=== PATIENT | female | born 1975 | race Caucasian/White ===

== ENCOUNTER 2024-10-15 12:49 | Emergency (ER) | payer MEDICAID, SELFPAY ==
[2024-10-15 12:49] VITALS: BP 145/81; PULSE 88; RESP 20; TEMP 36.9; O2SAT 100
--- NOTE | 2024-10-15 13:12 | RAD_ITS ---
EXAM: XR CHEST, 2 VIEWS CLINICAL INDICATION: COUGH TECHNIQUE: Frontal and lateral views of the chest. COMPARISON: No relevant prior studies available. FINDINGS: LUNGS AND PLEURAL SPACES: Unremarkable. No consolidation or edema. No pneumothorax. No effusion. HEART: Unremarkable. Cardiac silhouette not enlarged. MEDIASTINUM: Central airways and mediastinal contour are unremarkable. BONES/JOINTS: Mild degenerative changes of the spine and acromioclavicular joints. No acute fracture. SOFT TISSUES: Prior cholecystectomy. RAD/Chest PA and Lateral IMPRESSION: No radiographic evidence of acute cardiopulmonary disease. Electronically Signed: Brian Miller MD at 13:44 EST ,
--- NOTE | 2024-10-15 13:29 | EX.ED.VIS.UR ---
HPI HPI - URI History of Present Illness Chief Complaint: Cough Detail of Chief Complaint: Cough and congestion Informant: patient Narrative Narrative: Patient presents to the emergency department with complaint of cough and congestion. She tells me she had COVID 2 weeks ago and continues to cough and feel congested. She has history of asthma. She denies any significant chest pain. She has had some clear to white phlegm at times. She denies recent travel or surgery. No prior history of PE or DVT. ROS ROS ED Review of Systems ROS Unobtainable: other Constitutional Constitutional ED: Reports lethargy; Denies chills, fever(s), sweats or weight loss Eyes Eyes: Denies blurry vision, change in vision or diplopia ENT ENT ED: Denies rhinorrhea or sore throat Cardiovascular Cardiovascular: Denies chest pain, orthopnea or racing heartbeat Respiratory/Chest Respiratory/Chest: Reports cough; Denies dyspnea, dyspnea on exertion, orthopnea or sputum Gastrointestinal Gastrointestinal: Denies abdominal pain, diarrhea, nausea or vomiting Genitourinary Genitourinary ED: Denies dysuria, hematuria or urinary frequency Musculoskeletal Musculoskeletal: Denies arthralgias, back pain, myalgias or neck pain Integumentary Denies abscess, Abrasions or rash Neurologic Neurologic: Denies headache(s) or weakness Psychiatric Psychiatric: Denies anxiety, depression or suicidal thoughts Endocrine Endocrinology: Denies polydipsia, polyphagia or polyuria Hematologic/Lymphatic Hematologic/Lymphatic: Denies easy bleeding, easy bruising or lymphadenopathy Allergic/Immunologic Allergic/Immunologic ED: Denies mouth swelling, tongue swelling or urticaria [facility] Medical History (Updated 10/15/24 @ 13:[address] Eitan Liang, ) Cough Physical exam, pre-employment Home Medications ?Medication ?Instructions ?Recorded ?Last Taken ?Type albuterol sulfate 90 mcg/actuation 2 puff inhalation Q4H PRN PRN 10/15/24 Unknown Rx aerosol inhaler (Ventolin HFA) Wheezing ##1 benzonatate 200 mg capsule 200 mg PO BID PRN cough #14 caps 10/15/24 Unknown Rx prednisone 20 mg tablet 20 mg PO BID #10 tabs 10/15/24 Unknown Rx Allergy/AdvReac Type Severity Reaction Status Date / Time metoclopramide (From Reglan) Allergy Severe NEEDS Verified 01/22/25 12:51 FOLLOW-UP lisinopril Allergy Intermediate COUGH Verified 10/15/24 12:51 Social History Smoking Status: Unknown if ever smoked EXAM Physical Exam Const Vital Signs: 10/15/24 12:49 10/15/24 13:07 Temperature 98.5 F Temperature Source Temporal Pulse Rate 88 Respiratory Rate 20 H Respiratory Effort Normal Non-Labored Respiratory Depth Normal Respiratory Pattern Normal Blood Pressure 145/81 H Blood Pressure Mean 102 Pulse Ox 100 Oxygen Delivery Method Room Air Positive well nourished and well developed General Appearance ED: well developed and NAD HEENT Reports TM's clear and moist mucous membranes normocephalic and atraumatic; Negative for trauma or tenderness Tympanic Membrane ED: Yes TM's clear Eyes PERRL and EOMs intact bilaterally General Eye ED: Negative for pale conjunctiva or scleral icterus Neck no lymphadenopathy, supple and no JVD General: Negative for tenderness Chest Wall inspection of chest normal and palpation of chest normal Chest: Negative for tenderness Resp normal respiratory effort and clear to auscultation bilaterally Effort and Inspection: Negative for respiratory distress or pain with movement Auscultation: Negative for rhonchi, wheezes or diminished lung sounds Cardio regular rate, regular rhythm, S1 normal heart sound, S2 normal heart sound and no murmurs Peripheral Pulses: pulses 2+ throughout GI normal to inspection, nondistended, normoactive bowel sounds, soft to palpation, non-tender, non-distended and no masses Back/Spine no CVA tenderness and no thoracic nor lumbar tenderness Extremity normal to inspection General Extremety ED: Negative for edema General Extremity: Negative for edema Neuro oriented x3, CN's II-XII intact bilaterally, no sensory deficits noted and gait normal Sensorium / Orientation: awake, alert, oriented to person, oriented to place and oriented to time Motor Exam: strength 5/5 throughout and strength abnormal Psych mental status grossly normal Skin no rashes or lesions noted and no wounds MDM MDM MDM Narrative Medical decision making narrative: Patient presents with ongoing cough and congestion for the last 2 weeks since being diagnosed with COVID. She denies fevers or chills. She has had some clear phlegm. Clinically she looks well. She does have history of asthma. Lab Data Attestation: I reviewed the patient's lab results. Radiography Diagnostic Testing: Clinical Impression(s) from Imaging Studies Chest X-Ray 10/15/24 13:12 IMPRESSION: No radiographic evidence of acute cardiopulmonary disease. Electronically Signed: Brian Miller MD at 13:44 EST , 2 view chest x-ray obtained interpreted by myself as no evidence of infiltrate or pneumothorax or acute disease process. Radiology in agreement. Discharge Plan Triage Chief Complaint: Cough ED Provider: Eitan Liang Dx/Rx/DC Orders Clinical Impression: Asthmatic bronchitis Instructions: ED Bronchitis, No Antibiotic (Adult) Prescriptions: New prednisone 20 mg tablet 20 mg PO BID Qty: 10 0RF benzonatate 200 mg capsule 200 mg PO BID PRN (Reason: cough) Qty: 14 0RF albuterol sulfate [Ventolin HFA] 90 mcg/actuation HFA aerosol inhaler 2 puff inhalation Q4H PRN PRN (Reason: Wheezing) Qty: 1 0RF Primary Care Provider: Care Physician,No Primary Referrals: Care Physician,No Primary [Primary Care Provider] - Print Language: Georgian Disposition Disposition: Home, Self Care
== END 2024-10-15 14:06 | disposition home or self-care (01) ==
LOC: ED 13:59
PROVIDERS: Emergency Provider Emergency Medicine; Referring Provider Emergency Medicine; Visit Provider Emergency Medicine
DX: J45.909 Unspecified asthma, uncomplicated (principal); Z86.16 Personal history of COVID-19
CPT/HCPCS: 71046; 99282

== ENCOUNTER 2024-11-10 19:24 | Emergency (ER) | payer MEDICAID, SELFPAY ==
[2024-11-10 19:25] VITALS: BP 129/81; PULSE 92; RESP 17; TEMP 37; O2SAT 100
--- NOTE | 2024-11-10 19:32 | RAD_ITS ---
PROCEDURE: Portable upright chest radiograph, one view REASON FOR EXAM: Chest pain TECHNIQUE: A single AP COMPARISON: View of the chest was obtained. None. FINDINGS: The cardiomediastinal silhouette is within normal limits. The osseous structures are intact. No pneumothorax, focal airspace consolidation, or pleural effusion. RAD/Chest 1 View (Portable) IMPRESSION: No acute cardiopulmonary process is demonstrated. If there is persistent pain or clinical concern, follow-up chest CT evaluation may be considered. Reading Location: [facility]
[2024-11-10 19:45] LABS: Absolute Lymphocyte Count 3.38 X10^3/uL (0.83-4.51); Absolute Neutrophil Count 6.6 X10^3/uL (2.0-7.7); Basophil# 0.08 X10^3/uL; Basophil% 0.7 % (0-1); Eosinophil# 0.11 X10^3/uL; Hematocrit 44.4 % (37-47); Hemoglobin 14.3 g/dL (12.0-15.0); Lymphocyte # 3.38 X10^3/ul (0.83-4.51); Lymphocyte % 30.9 % (19-41); Mean Corp Hgb Conc 32.2 g/dL (32-36); Mean Corpuscular Hgb 29.1 pg (27.0-32.0); Mean Corpuscular Volume 90.2 fL (81-99); Mean Platelet Vol. 9.3 fl (6.2-12.0); Monocyte# 0.72 X10^3/uL; Monocyte% 6.6 % (0-10); NRBC Flagged by Analyzer 0 % (0-5); Neutrophil # 6.62 X10^3/uL (2.7-7.7); Neutrophil % 60.6 % (47-70); Platelet Count 458 K/mm3 (150-450); RBC Distribution Width CV 12.9 % (11.6-14.6); RBC Distribution Width SD 42.5 fl (35.1-43.9); Red Blood Count 4.92 M/mm3 (4.2-5.4); White Blood Count 10.9 K/mm3 (4.4-11.0)
[2024-11-10 20:28] LABS: Anion Gap 6 (5-15); BUN 9 mg/dL (7-18); BUN/Creat Ratio 10.8 RATIO (10-20); Calcium,Total 9.4 mg/dL (8.5-10.1); Chloride 104 mmol/L (98-107); Creatinine, Serum 0.83 mg/dL (0.55-1.02); EST Glomerular Filtration Rate 78 mL/min (>60); Est Glom Filt Rate - Afr Amer 94 mL/min (>60); Glucose 99 mg/dL (74-106); Potassium 2.9 mmol/L (3.5-5.1); Sodium Level 137 mmol/L (136-145); Troponin-I HS (w/2H Reflex) 3 pg/mL (3.0-54.0)
[2024-11-10 21:36] LABS: Reflex Troponin-HS? (from REC) Y
[2024-11-10 22:06] VITALS: BP 116/67; PULSE 74
--- NOTE | 2024-11-10 22:27 | ED.VIS.CHEST ---
HPI History of Present Illness Chief Complaint: Chest Pain Narrative Narrative: Chief complaint and HPI: Chest pain. 49-year-old female with past medical history of fibromyalgia, anxiety, HTN presents for evaluation of midsternal chest pain. Onset of chest pain was yesterday. Patient states that she has been under a huge amount of stress since Sunday. She describes the pain as slight pressure. She denies any fever, chills, shortness of breath, abdominal pain, URI symptoms. Denies any trauma. Denies any bilateral lower extremity pain or swelling. Denies any recent travel or surgery. History of tobacco abuse. Denies any history of CAD or CAD at young family members. Review of systems: See HPI Medications: As listed on the chart Allergies: As listed on the chart PFSH: Per chart Vital signs: As listed on the chart. Reviewed. Physical exam: Gen: A&O x3, NAD Head: Normocephalic, atraumatic Eyes: No sclera icterus, conjunctiva clear ENT: Moist mucous membranes Neck: Trachea midline, No JVD CV: RRR, no murmurs, no peripheral edema Resp: Lungs CTA BL, no w/r/c GI: Abd soft, non-distended, non-tender, no r/r/g Musc: Full ROM, no deformity Skin: Warm, dry Neuro: Alert, oriented, grossly intact, sensation intact Psych: Cooperative, appropriate mood and affect [facility] Medical History (Updated 11/10/24 @ 23:[address] Jero Isaacs, ) Cough Physical exam, pre-employment Home Medications ?Medication ?Instructions ?Recorded ?Last Taken ?Type albuterol sulfate 90 mcg/actuation 2 puff inhalation Q4H PRN PRN 10/15/24 Unknown Rx aerosol inhaler (Ventolin HFA) Wheezing ##1 cyclobenzaprine 10 mg tablet 10 mg PO QHS PRN PRN muscle spasm 11/10/24 Unknown History duloxetine 60 mg capsule,delayed 60 mg PO DAILY 11/10/24 Unknown History release gabapentin 300 mg capsule 300 mg PO TID 11/10/24 Unknown History hydrochlorothiazide 12.5 mg capsule 12.5 mg PO DAILY 11/10/24 Unknown History losartan 100 mg tablet 100 mg PO DAILY 11/10/24 Unknown History potassium chloride 10 mEq 10 meq PO BID 11/10/24 Unknown History tablet,extended release topiramate 25 mg tablet 75 mg PO QHS 11/10/24 Unknown History Allergy/AdvReac Type Severity Reaction Status Date / Time metoclopramide (From Reglan) Allergy Severe NEEDS Verified 11/10/24 19:25 FOLLOW-UP lisinopril Allergy Intermediate COUGH Verified 11/10/24 19:25 Social History Smoking Status: Light Smoker (<10/day) EXAM Physical Exam Const Vital Signs: 11/10/24 19:25 11/10/24 22:06 11/10/24 22:06 Temperature 98.6 F Temperature Source Oral Pulse Rate 92 74 Respiratory Rate 17 Blood Pressure 129/81 H 116/67 Blood Pressure Mean 97 83 Pulse Ox 100 Oxygen Delivery Method Room Air Room Air MDM MDM MDM Narrative Medical decision making narrative: 49-year-old female with past medical history of fibromyalgia, anxiety, HTN presents for evaluation of midsternal chest pain. Pain has been ongoing for 2 days. Patient states she has been under a lot of stress and anxiety lately. Denies any associated symptoms. Chest pain protocol was initiated in triage. Workup was mostly completed by the time I saw the patient. Differential diagnosis includes but is not limited to stress response, musculoskeletal strain, electrolyte abnormality. Suspect less likely ACS. Agree with the workup that was ordered. EKG and chest x-ray reviewed see below. CBC without leukocytosis or anemia. Patient does have thrombocytosis of 458. I do not have previous labs to compare to compared to. BMP with hypokalemia of 2.9. Will get magnesium level. P.o. potassium ordered. Troponin unremarkable x2. Magnesium level unremarkable. At this point in time no clear etiology for patient's chest pain. Patient is low risk via the heart score. Suspect less likely ACS. May be secondary to anxiety. Patient was educated to follow-up with PCP. She confirmed understanding of the plan. Patient was educated to continue potassium replacement. Will give her lab order to get her potassium rechecked in 3 days. She confirmed understanding. Return precautions explained. EKG: Interpreted by me/EM physician: EKG shows normal sinus rhythm without any acute ischemic changes. Heart rate is 70. Diagnostic: Interpreted by me/EM physician: Chest x-ray without pneumonia, effusion, cardiomegaly, pneumothorax Impression: 1. Chest pain, unclear etiology 2. Anxiety 3. Hypokalemia with history of hypokalemia Lab Data Labs: Laboratory Results - last 24 hr 11/10/24 11/10/24 19:00 22:25 WBC 10.9 RBC 4.92 Hgb 14.3 Hct 44.4 MCV 90.2 MCH 29.1 MCHC 32.2 RDW Std Deviation 42.5 RDW Coeff of [place] 12.9 Plt Count 458 H MPV 9.3 Immature Gran % (Auto) 0.200 Neut % (Auto) 60.6 Lymph % (Auto) 30.9 [place] % (Auto) 6.6 Eos % (Auto) 1.0 Baso % (Auto) 0.7 Absolute Neuts (auto) 6.6 Absolute Lymphs (auto) 3.38 Nucleated RBC % 0 Sodium 137 Potassium 2.9 L Chloride 104 Carbon Dioxide 27.0 Anion Gap 6 BUN 9 Creatinine 0.83 Est GFR (MDRD) Af Amer 94 Est GFR (MDRD) Non-Af 78 BUN/Creatinine Ratio 10.8 Glucose 99 Calcium 9.4 Magnesium 2.2 Troponin I High Sens 3 < 3 L Radiography Diagnostic Testing: Clinical Impression(s) from Imaging Studies Chest X-Ray 11/10/24 19:32 IMPRESSION: No acute cardiopulmonary process is demonstrated. If there is persistent pain or clinical concern, follow-up chest CT evaluation may be considered. Reading [facility] Discharge Plan Triage Chief Complaint: Chest Pain ED Provider: Jero Isaacs Dx/Rx/DC Orders Clinical Impression: Chest pain in adult, Anxiety, Hypokalemia Instructions: ED Hypokalemia, Chest Pain O Prescriptions: No Action albuterol sulfate [Ventolin HFA] 90 mcg/actuation HFA aerosol inhaler 2 puff inhalation Q4H PRN PRN (Reason: Wheezing) Qty: 1 0RF cyclobenzaprine 10 mg tablet 10 mg PO QHS PRN PRN (Reason: muscle spasm) topiramate 25 mg tablet 75 mg PO QHS potassium chloride 10 mEq tablet extended release 10 meq PO BID hydrochlorothiazide 12.5 mg capsule 12.5 mg PO DAILY gabapentin 300 mg capsule 300 mg PO TID losartan 100 mg tablet 100 mg PO DAILY duloxetine 60 mg capsule,delayed release(DR/EC) 60 mg PO DAILY Other Ambulatory Orders: Basic Metabolic Profile (BMP) (Routine) Timeframe: 3 Days Facility: [facility] - Location: Laboratory [facility] ,Out of Referrals: Barry Richter MD [Med Staff - Active Staff] - 3-5 Days [facility] Doctor,Out of [Primary Care Provider] - Activity Restrictions/Additional Instructions: Follow-up with your primary care physician. If you do not have one see the one provided above. Continue to take your potassium replacement. Get your potassium level rechecked. Return back to the ED if symptoms change or worsen. Print Language: Belarusian Disposition Disposition: Home, Self Care
[2024-11-10] MEDS: Potassium Chloride Oral Soln 20 MEQ/15 ML UDC 40 MEQ PO (22:38)
[2024-11-10 22:57] LABS: Magnesium 2.2 mg/dL (1.6-2.6); Troponin-I HS < 3 pg/mL (3.0-54.0)
== END 2024-11-11 00:01 | disposition home or self-care (01) ==
PROVIDERS: Emergency Provider Surgery; Visit Provider Surgery
DX: R07.9 Chest pain, unspecified (principal); F41.9 Anxiety disorder, unspecified; E87.6 Hypokalemia; F17.200 Nicotine dependence, unspecified, uncomplicated; I10 Essential (primary) hypertension; Z79.51 Long term (current) use of inhaled steroids; Z79.899 Other long term (current) drug therapy
CPT/HCPCS: 71045; 80048; 83735; 84484; 85025; 93005; 99285; A4216

== ENCOUNTER 2024-11-13 13:42 | Emergency (ER) | payer MEDICAID, SELFPAY ==
[2024-11-13 13:43] VITALS: BP 154/96; PULSE 108; RESP 18; TEMP 36.4; O2SAT 100; BMI 32.4
[2024-11-13 14:43] VITALS: BP 122/82; PULSE 81; RESP 20; O2SAT 97
[2024-11-13 14:46] VITALS: O2SAT 96
--- NOTE | 2024-11-13 14:46 | EKG12_ITS ---
Test Reason : PALPS Blood Pressure : */* mmHG Vent. Rate : 78 BPM Atrial Rate : 78 BPM P-R Int : 146 ms QRS Dur : 86 ms QT Int : 400 ms P-R-T Axes : 67 65 54 degrees QTcB Int : 456 ms Normal sinus rhythm Normal ECG Confirmed by RODERICK NAGY ([id number]), movie editor MELITON BESS ([id number]) on 11/17/2024 7:11:22 AM Referred By: Osorio Chaparro Confirmed By: RODERICK NAGY
--- NOTE | 2024-11-13 14:49 | RAD_ITS ---
PROCEDURE: CHEST 1 VIEW (PORTABLE) REASON FOR EXAM: Chest pain TECHNIQUE: Frontal view of the chest. COMPARISON: None. FINDINGS: Lungs are clear of pneumonia and congestion. No pleural effusions, thickening, or pneumothorax. Heart and mediastinum are normal. Great vessels unremarkable. No hilar masses. Bones and soft tissues are unremarkable. Cardiac monitoring leads overlie the chest wall. RAD/Chest 1 View (Portable) IMPRESSION: No active cardiopulmonary disease. Reading Location: [facility]
--- NOTE | 2024-11-13 14:52 | ED.VIS.CHEST ---
HPI History of Present Illness Chief Complaint: Palpitations Detail of Chief Complaint: Palpitations for a year. History of hypokalemia. Informant: patient Onset/Context/Timing Onset: - (12+ months. Palpitations. No chest pain.) Activity at onset: gradual Timing: Intermittent Worsened By: Nothing Relieved By: Nothing Narrative Narrative: 49-year-old female history of hypertension, fibromyalgia. States she has had low potassium before. She was seen here on Sunday had low potassium at that time at 2.9. States she is having accelerated heart rate and palpitations which she has had for more than a year. She has been evaluated for it. She is currently losing weight she is gone from 250 to around 180. Prior Similar Symptoms: Yes Recent Illness/Hospitalization: No CVD Risk Factors: Positive for Hypertension PE Risk Factors: Negative for Recent Travel/Surgery, Recent Immobilization, Prior DVT or PE, Cancer or OCP + Smoking + >/=35 TAD Risk Factors: Negative for Marfan's Syndrome [facility] Medical History (Updated 11/13/24 @ 16:[address] Osorio Chaparro MD) HTN (hypertension) Cough Physical exam, pre-employment Home Medications ?Medication ?Instructions ?Recorded ?Last Taken ?Type albuterol sulfate 90 mcg/actuation 2 puff inhalation Q4H PRN PRN 10/15/24 Unknown Rx aerosol inhaler (Ventolin HFA) Wheezing ##1 cyclobenzaprine 10 mg tablet 10 mg PO QHS PRN PRN muscle spasm 11/10/24 Unknown History duloxetine 60 mg capsule,delayed 60 mg PO DAILY 11/10/24 Unknown History release gabapentin 300 mg capsule 300 mg PO TID 11/10/24 Unknown History hydrochlorothiazide 12.5 mg capsule 12.5 mg PO DAILY 11/10/24 Unknown History losartan 100 mg tablet 100 mg PO DAILY 11/10/24 Unknown History potassium chloride 10 mEq 10 meq PO BID 11/10/24 Unknown History tablet,extended release topiramate 25 mg tablet 75 mg PO QHS 11/10/24 Unknown History Allergy/AdvReac Type Severity Reaction Status Date / Time metoclopramide (From Reglan) Allergy Severe NEEDS Verified 11/10/24 19:25 FOLLOW-UP lisinopril Allergy Intermediate COUGH Verified 11/10/24 19:25 Social History (Updated 11/13/24 @ 15:07 by Lily Mason) household members: friend(s) current occupational status: employed Smoking Status: Light Smoker (<10/day) ROS ROS ED ROS Narrative Palpitations. Denies recent illness. Had COVID 1 month ago. Constitutional Constitutional ED: Denies chills or fever(s) Eyes Eyes: Reports none ENT ENT ED: Denies ear pain Cardiovascular Cardiovascular: Reports as per HPI, palpitations and racing heartbeat; Denies chest pain Respiratory/Chest Respiratory/Chest: Denies cough or dyspnea Gastrointestinal Gastrointestinal: Denies abdominal pain Genitourinary Genitourinary ED: Denies dysuria or hematuria Musculoskeletal Musculoskeletal: Denies arthralgias or back pain Integumentary Denies abscess or Abrasions Neurologic Neurologic: Denies headache(s) Psychiatric Psychiatric: Denies anxiety Endocrine Endocrinology: Denies cold intolerance Hematologic/Lymphatic Hematologic/Lymphatic: Denies easy bleeding, easy bruising or lymphadenopathy Allergic/Immunologic Allergic/Immunologic ED: Denies mouth swelling, tongue swelling or urticaria EXAM Physical Exam Narrative Exam Narrative: 49-year-old female sitting upright in bed. Vital signs are stable afebrile. Heart rates 108. Pulse ox 100% on room air no signs hypoxia. No distress. H EENT exam pupils round react light. Neck nontender JVD. No lymphadenopathy. Lungs clear to auscultation bilaterally. Heart tachycardic 110 no murmur. Chest wall ribs nontender. Abdomen soft nontender. Moving all 4 extremities. Nontender no edema. No cords. Calves nontender. Normal strength. Normal range of motion. Back nontender. Neurologically awake and alert no focal motor deficits. Const Vital Signs: 11/13/24 13:43 11/13/24 14:43 11/13/24 14:46 Temperature 97.6 F L Temperature Source Temporal Pulse Rate 108 H 81 Respiratory Rate 18 20 H Respiratory Effort Blood Pressure 154/96 H 122/82 H Blood Pressure Mean 115 95 Pulse Ox 100 97 96 Oxygen Delivery Method Room Air Room Air 11/13/24 15:06 Temperature Temperature Source Pulse Rate Respiratory Rate Respiratory Effort Normal Non-Labored Blood Pressure Blood Pressure Mean Pulse Ox Oxygen Delivery Method Positive well nourished and well developed; Negative for cachectic, contractures or unkempt General Appearance ED: well developed and NAD; Negative for unkempt, cachectic, contractures or pallor Nutritional Appearance: Negative for cachectic HEENT Reports moist mucous membranes normocephalic and atraumatic; Negative for trauma or tenderness Eyes PERRL and EOMs intact bilaterally General Eye ED: Negative for pale conjunctiva or scleral icterus Neck no lymphadenopathy, supple and no JVD General: Negative for tenderness Chest Wall inspection of chest normal and palpation of chest normal Chest: Negative for tenderness Resp normal respiratory effort and clear to auscultation bilaterally Effort and Inspection: Negative for respiratory distress Auscultation: Negative for rales, rhonchi, wheezes or diminished lung sounds Cardio regular rate, regular rhythm, S1 normal heart sound, S2 normal heart sound and no murmurs Rate: Negative for bradycardia or tachycardic Rhythm: Negative for abnormal rhythm Peripheral Pulses: pulses 2+ throughout GI normal to inspection, nondistended, normoactive bowel sounds, soft to palpation, non-tender, non-distended and no masses Back/Spine no CVA tenderness and no thoracic nor lumbar tenderness Extremity normal to inspection General Extremety ED: Negative for edema, pulses abnormal or tenderness General Extremity: Negative for edema or pulses abnormal Neuro oriented x3 and CN's II-XII intact bilaterally Sensorium / Orientation: awake, alert, oriented to person, oriented to place and oriented to time; Negative for confused, lethargic or stuporous Motor Exam: strength 5/5 throughout Psych mental status grossly normal Appearance: Negative for unkempt Attitude: No agitated Mood & Affect: Negative for depressed, anxious or tearful Skin no rashes or lesions noted and no wounds General Skin Exam: Negative for jaundice or pallor Rashes: No rashes noted Trauma: Negative for abrasion MDM MDM MDM Narrative Medical decision making narrative: 49-year-old female palpitations. Exam benign. Screening labs will be obtained. Repeat exam at 4:20 PM patient doing well. Vital signs are stable. We discussed all of her test results. Her potassium is 3.4 she is on potassium replacement. She will continue that and follow-up with her primary care physician as needed. History & Record Review Discussion w/independent historian: Patient Additional record(s) reviewed:: Prior inpatient record, Prior outpatient record, Prior ED visit and Prior labs Lab Data Attestation: I reviewed the patient's lab results. Lab results narrative: CBC and white count normal at 7. H&H 13 and 40. Platelets 420. Electrolytes show potassium 3.4 which is much better than her recent 2.9. Anion gap 6. BUN and creatinine 19 and 0.8. Glucose 102. Troponin 4. Chest x-ray normal. Labs: Laboratory Results - last 24 hr 11/13/24 14:55 WBC 7.9 RBC 4.48 Hgb 13.0 Hct 40.4 MCV 90.2 MCH 29.0 MCHC 32.2 RDW Std Deviation 42.8 RDW Coeff of [place] 13.0 Plt Count 420 MPV 8.8 Immature Gran % (Auto) 0.300 Neut % (Auto) 57.1 Lymph % (Auto) 30.4 Emmet % (Auto) 7.6 Eos % (Auto) 3.7 Baso % (Auto) 0.9 Absolute Neuts (auto) 4.5 Absolute Lymphs (auto) 2.39 Nucleated RBC % 0 Sodium 140 Potassium 3.4 L Chloride 109 H Carbon Dioxide 25.0 Anion Gap 6 BUN 19 H Creatinine 0.88 Estim Creat Clear Calc 78.93 Est GFR (MDRD) Af Amer 88 Est GFR (MDRD) Non-Af 73 BUN/Creatinine Ratio 21.5 H Glucose 102 Calcium 9.3 Troponin I High Sens 4 Radiography Chest X-Ray - ED: 1 View, Read by ED Physician, Read by Radiologist, Heart, Lungs, Mediastinum, Bony Structures, No Acute Disease and Chronic Changes Diagnostic Testing: Clinical Impression(s) from Imaging Studies Chest X-Ray 11/13/24 14:49 IMPRESSION: No active cardiopulmonary disease. Reading Location: [facility] Chest x-ray, 2 views, AP and lateral, interpreted by myself and radiologist shows no acute abnormality. Normal cardiac silhouette. Normal lung croft. Rhythm Strip Rhythm Strip: Sinus Rhythm Rate: 78 Ectopy: None EKG Initial EKG: Attestation: I personally reviewed and interpreted this EKG as follows: Interpretation: Sinus Rhythm and No Acute Injury Pattern Comments: Normal sinus rhythm rate of 78 acute signs of VT or ischemia. No dysrhythmia. Discharge Plan Triage Chief Complaint: Palpitations ED Provider: Osorio Chaparro Dx/Rx/DC Orders Clinical Impression: Chronic hypokalemia, Heart palpitations Instructions: ED Hypokalemia Prescriptions: No Action albuterol sulfate [Ventolin HFA] 90 mcg/actuation HFA aerosol inhaler 2 puff inhalation Q4H PRN PRN (Reason: Wheezing) Qty: 1 0RF cyclobenzaprine 10 mg tablet 10 mg PO QHS PRN PRN (Reason: muscle spasm) topiramate 25 mg tablet 75 mg PO QHS potassium chloride 10 mEq tablet extended release 10 meq PO BID hydrochlorothiazide 12.5 mg capsule 12.5 mg PO DAILY gabapentin 300 mg capsule 300 mg PO TID losartan 100 mg tablet 100 mg PO DAILY duloxetine 60 mg capsule,delayed release(DR/EC) 60 mg PO DAILY Primary Care Provider: Lena Bazan,Out of Referrals: [facility] Doctor,Out of [Primary Care Provider] - As Needed Activity Restrictions/Additional Instructions: Your labs, chest x-ray and EKG all look good. Your potassium was just below normal at 3.4 much better than your prior 2.9. Continue to take your potassium as prescribed. Follow-up with your primary care physician as needed. Print Language: Prydeinig Disposition Disposition: Home, Self Care
[2024-11-13 15:00] LABS: Absolute Lymphocyte Count 2.39 X10^3/uL (0.83-4.51); Absolute Neutrophil Count 4.5 X10^3/uL (2.0-7.7); Basophil# 0.07 X10^3/uL; Basophil% 0.9 % (0-1); Eosinophil# 0.29 X10^3/uL; Eosinophils% 3.7 % (0-5); Hematocrit 40.4 % (37-47); Lymphocyte # 2.39 X10^3/ul (0.83-4.51); Lymphocyte % 30.4 % (19-41); Mean Corp Hgb Conc 32.2 g/dL (32-36); Mean Corpuscular Volume 90.2 fL (81-99); Mean Platelet Vol. 8.8 fl (6.2-12.0); Monocyte% 7.6 % (0-10); NRBC Flagged by Analyzer 0 % (0-5); Neutrophil # 4.48 X10^3/uL (2.7-7.7); Neutrophil % 57.1 % (47-70); Platelet Count 420 K/mm3 (150-450); RBC Distribution Width SD 42.8 fl (35.1-43.9); Red Blood Count 4.48 M/mm3 (4.2-5.4); White Blood Count 7.9 K/mm3 (4.4-11.0)
[2024-11-13 15:21] LABS: Anion Gap 6 (5-15); BUN 19 mg/dL (7-18); BUN/Creat Ratio 21.5 RATIO (10-20); Calcium,Total 9.3 mg/dL (8.5-10.1); Chloride 109 mmol/L (98-107); Creatinine, Serum 0.88 mg/dL (0.55-1.02); EST Glomerular Filtration Rate 73 mL/min (>60); Est Glom Filt Rate - Afr Amer 88 mL/min (>60); Estimated Creatinine Clearance 78.93 ml/min; Glucose 102 mg/dL (74-106); Potassium 3.4 mmol/L (3.5-5.1); Sodium Level 140 mmol/L (136-145); Troponin-I HS 4 pg/mL (3.0-54.0)
[2024-11-13 16:31] VITALS: BP 132/82; PULSE 79; RESP 15; TEMP 37; O2SAT 98
== END 2024-11-13 16:33 | disposition home or self-care (01) ==
PROVIDERS: Emergency Provider Emergency Medicine; Referring Provider Emergency Medicine; Visit Provider Emergency Medicine
DX: E87.6 Hypokalemia (principal); R00.2 Palpitations; F17.200 Nicotine dependence, unspecified, uncomplicated
CPT/HCPCS: 71045; 80048; 84484; 85025; 93005; 99284

== ENCOUNTER 2025-04-08 09:42 | Outpatient (RCR) | payer MEDICAID, SELFPAY ==
--- NOTE | 2025-04-08 10:44 | BH.COMM ---
Communication Note Communication with Client Communication Note: Met with pt to complete initial paperwork and administer the CSSR-S screening and risk assessment. Pt is a moderate risk based on symptoms from the past month. Pt denies any active SI, plan, or intent within the past month or thoughts of within the past month. However, pt does have history of wishing she could fall asleep and not wake up a little over a month ago. Pt also has history of suicidal ideations that pt reports are fleeting and intrusive in nature, not because she wants to . Per pt?s report it is difficult to say if all her past suicidal ideations were intrusive/obsessional in nature. Pt shared she had thoughts of shooting herself and overdosing when she has been depressed and overwhelmed in the past. Pt stated these thoughts cause significant panic and pt does not want to kill herself, so when she has these thoughts, she immediately tells someone. Pt has history of two suicide attempts back in the early . Pt feels that both attempts were due to her OCD symptoms, but pt was also under significant distress and had hopelessness. Pt first attempted after she read that she could get suicidal ideations from her Zoloft and then she attempted by taking too many Zoloft. Pt immediately vomited these up. Pt also attempted using Tylenol PM in the early and threw these up. Both attempts were right after she turned over her custody of her children. No weapons at home per her report. Pt reports she does not want to and she is terrified of , but she wants to be rid of these intrusive thoughts and racing thoughts. Pt is future oriented. Discussed case with Dr. Thurman and pt will be admitted to [facility] tx with a diagnosis of OCD F42
--- NOTE | 2025-04-08 10:44 | BH.MTP ---
Master Treatment Plan Patient Information Program Physician:: Dr. Paul Thurman Primary Therapist:: Bailey DE ANDA Psychiatric Diagnoses Psychiatric Diagnoses:: OCD F42; PTSD Diagnosis Code(s):: F42 Estimated LOS Estimated LOS (in weeks):: 8 Problem/Goal #1 Problem/Goal #1 Stated Goal:: Pt will reduce overall frequency and intensity of anxiety and OCD symptoms so that daily functioning is less impaired. Description of Barriers: Pt has a significant trauma history that continues to impact pt's core beliefs and behaviors. Pt is experiencing work, familial, and social stressors due to her symptoms. Pt is unable to manage her intrusive thoughts and feels like they are racing constantly. Pt reported she went my whole life without the right diagnosis. Pt has obsessional fears about medication, so there is a concern that pt will struggle to take a medication consistently to help with her OCD and anxiety. Functional Impact: Pt is a 49-year-old female with a history of C-PTSD, OCD, and MDD. Pt was referred to [facility] by [facility] due to pt experiencing significant anxiety and depression. Pt reports her OCD has been life-long, but it has become debilitating over the past 8 months. Psychosocial stressors impacting this decompensation include leaving one toxic environment for another, having surgery on her hang which hindered pt's ability to engage in compulsions, and work stress. Pt currently endorses a depressed mood with panic attacks multiple times a day. Pt reports obsessions about contamination, getting ill/having an illness, harm OCD, and order. Pt reports her compulsions take all day and they cause significant distress. Pt reports engaging in her compulsions is impacting her relationship with her and has caused issues with healing from surgery. Pt reports she is terrified to , but she is feeling extremely overwhelmed and helpless. Pt reports racing thoughts, irritability, and avoidance that impacts her daily functioning. Goal Relevant Strengths/Supports: Pt's symptoms have gotten so severe that pt shared I'm going to beat this, I can't keep doing this. Pt has support from her and a close family friend. Pt is engaged and motivated. Objectives Objective #1: Stated Objective: Pt will improve ability to cope with OCD symptoms and reduce avoidance by setting 1-2 small exposure goals each week and reducing engagement in compulsions each week. Interventions: Through group and individual therapy, pt will gain skills on distress tolerance and sitting with the uncomfortable. Therapist will help pt set small, realistic exposure goals each week. Therapist will have pt practice these goals both in session and at home. Therapist will provide psychoeducation on OCD including external triggers, internal triggers, rituals, avoidance, and feared consequences. Therapist will also provide psychoeducation on intrusive thinking and reducing safety behaviors. Therapist will assessment pt using the YBOCS assessment to develop ERP goals. Discharge Criteria: Pt will have accomplished this goal when pt can report accomplishing at least 1 exposure goal per week and can report reduced compulsions both at IOP and at home. Target Date: 06/03/25 Review Date: 05/06/25 Status: open Objective #2: Stated Objective: Pt will identify 2-3 anxiety and OCD triggers and be able to use at least 1 distress tolerance skill to reduce DSM-5 scores. Interventions: Through group and individual sessions, pt will gain awareness of anxiety and OCD triggers and learn numerous techniques to manage anxiety and OCD symptoms. Therapist will teach mindfulness and other calming techniques to manage symptoms and increase distress tolerance skills. Therapist will also help pt utilize mindfulness skills to sit with the uncomfortable to increase confidence in managing triggers. Discharge Criteria: Pt will have met this goal when pt can identify at least 2 triggers and report using at least one distress tolerance skill. This goal will also be met when pt's DSM-5 scores for anxiety and OCD are decreased. Target Date: 06/03/25 Review Date: 05/06/25 Status: open Problem/Goal #2 Problem/Goal #2 Stated Goal:: Pt will decrease depressive symptoms, hopelessness, excessive guilt, worthlessness, and negative self-talk. Description of Barriers: Pt has a significant trauma history that continues to impact pt's core beliefs and behaviors. Pt is experiencing work, familial, and social stressors due to her symptoms. Pt is unable to manage her intrusive thoughts and feels like they are racing constantly. Pt reported she went my whole life without the right diagnosis. Pt has obsessional fears about medication, so there is a concern that pt will struggle to take a medication consistently to help with her OCD and anxiety. Functional Impact: Pt is a 49-year-old female with a history of C-PTSD, OCD, and MDD. Pt was referred to [facility] by [facility] due to pt experiencing significant anxiety and depression. Pt reports her OCD has been life-long, but it has become debilitating over the past 8 months. Psychosocial stressors impacting this decompensation include leaving one toxic environment for another, having surgery on her hang which hindered pt's ability to engage in compulsions, and work stress. Pt currently endorses a depressed mood with panic attacks multiple times a day. Pt reports obsessions about contamination, getting ill/having an illness, harm OCD, and order. Pt reports her compulsions take all day and they cause significant distress. Pt reports engaging in her compulsions is impacting her relationship with her and has caused issues with healing from surgery. Pt reports she is terrified to , but she is feeling extremely overwhelmed and helpless. Pt reports racing thoughts, irritability, and avoidance that impacts her daily functioning. Goal Relevant Strengths/Supports: Pt's symptoms have gotten so severe that pt shared I'm going to beat this, I can't keep doing this. Pt has support from her and a close family friend. Pt is engaged and motivated. Objectives Objective #1: Stated Objective: Pt will learn and utilize 2-3 healthy coping strategies to better manage depressive symptoms as shown by a decrease of DMS-5 symptoms for depression. Interventions: Through group and individual sessions, therapist will help pt identify triggers and warning signs of depression and guilt including emotional, physical, and behavioral changes. Therapist will teach pt various coping skills to manage symptoms and give pt tangible resources to use to regulate emotions. Therapist will use cognitive restructuring techniques and help pt gain awareness of negative thoughts that reinforce guilt and depression. Therapist will provide psychoeducation on maintenance cycles and help pt learn ways to break unhealthy maintenance cycles. Therapist will help pt incorporate behavioral activation and assist pt in setting SMART goals. Discharge Criteria: Pt will have met this goal when can report learning and using at least 2 coping skills to manage depressive symptoms and reduce isolation. Additionally, pt will have met this goal when pt's DSM-5 scores for depression decrease. Target Date: 06/03/25 Review Date: 05/06/25 Status: open Objective #2: Stated Objective: Pt will identify at least 2-3 negative self-talk messages used to reinforce negative core beliefs, worthlessness, and guilt and replace thoughts with balanced, realistic messages. Interventions: Therapist will help pt identify distorted, negative beliefs about self and replace with more realistic, affirmative messages. Therapist will use CBT and DBT to help pt increase insight to the connection between thoughts, emotions, and behaviors. Therapist will encourage pt to practice thought challenging. Discharge Criteria: Pt will have achieved this goal when can verbalize at least 2 cognitive distortions and effectively replace those thoughts with affirmative messages. Target Date: 06/03/25 Review Date: 05/06/25 Status: open
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
--- NOTE | 2025-04-10 07:55 | BH.DR.ITP ---
Initial Treatment Plan Patient Information Visit Information: Initial Treatment Plan Patient Information Visit Information: ADMISSION DATE: EXPECTED LOS: 4-6 weeks Problems/Symptoms Problem #1:: Depression Symptom:: Sadness, hopelessness, worthlessness, anhedonia, low energy Problem #2:: Obsessions Symptom:: Ruminations, Compulsions, intrusive thoughts, near delusional thought
--- NOTE | 2025-04-10 09:00 | BH.NA_ITS ---
Physical Data Vital Signs Pulse Rate: 78 Blood Pressure: 179/94 Height/Weight Height: 1.6 m Weight:: 84.368 kg Weight in Pounds: 186.0 lbs Current Medication Compliance Medication Compliance Do you take your medication as prescribed?: No (stopped several medications 1.5 months ago) Nutritional History Appetite Nutritional Instructions: Describe your appetite:: Fair Additional nutritional information:: Client states she has a hard time eating or drinking due to fear that stuff is contaminated. Client states she can not drink water because it is contaminated. Functional Assessment Sleep Pattern Describe any problems with sleeping: Client states she sleeps about 4 hours per night. Sensory/Communication Assess Hearing Problems Do you have any hearing problems?: Adequate (does use hearing aids) Communication Problems Do you have difficulty understanding what people are saying?: No Medical Problems/History Cardiac Conditions Cardiovascular: Hypertension Gastrointestinal Conditions Gastrointestinal: Diarrhea (for the past month- states I won't go and see anyone about it because I have just given up on doctors) Musculoskeletal Conditions Musculoskeletal: Other (See comments) (states she has been diagnosed with fibromyalgia in the past) Pain Assessment Do you have acute or chronic pain?: Yes (back, knee, left hand ) Surgical History Surgical History Have you had any surgeries? If so, list type and date:: Yes (carpal tunnel left wrist in February 2025, tubal, 2 C-sections, marian, ear tube) Substance Abuse Substance Abuse Please describe substance abuse in the last 30 days:: Client states she rarely drinks alcohol, stating she has several alcoholics in her family and doesn't want to. Client has been a tobacco user since the age of 14, prior use of cigarettes for many years but now vapes. Client states she vapes marijuana daily to help with her anxiety, but states she only uses when she's at home. Client states she drinks some pop with caffeine, but limits her use due to sugar. Mental Status Summary Mental Status Significant Findings/Observations on Appearance and Mood:: Client is alert and oriented x 4. Client is casually groomed. Client is cooperative with assessment. Client makes fair eye contact. Client's voice has normal rate and volume. Client appears anxious, visibly shaking during assessment. Client has a restricted affect. Client has normal processing. Client denies SI. Suicide Assessment Suicidal Ideation Are you currently or have you been suicidal in the past?: Yes Suicidal Intentional Rating Scale (SIRS): Suicidal thoughts (past) Physician Notification Past Psychiatric History MH Treatment Hx Past Psychiatric Medications:: Zoloft (attempted to overdose on in the past, states I read the side effects and I convinced myself it made me suicidal), Seroquel (caused restless leg in left leg), Cymbalta (had been on for several years but states I stopped taking it 1.5 months ago because I convinced myself I didn't need it), Wellbutrin Age of first mental health symptoms: Client states she first tried medication for her mental health in her early 20's. Client states she has been diagnosed with depression in the past, and states she was once diagnosed with bipolar but states I don't have that. Client states she has not formally been diagnosed with OCD. Current providers for mental health treatment (counselor, psychiatrist, child welfare caseworker, etc.): Client does not currently have any - client states she last did therapy about 5 years ago Fall Risk Assessment Age Age: Less than 60 Mental Status Mental Status: Willing & able to ask for assistance when needed Physical Status Physical Status: No problems Impairments Impairments: None Elimination Elimination: Continent AND independent Gait or Balance Gait or Balance: Walks independently Hx of Falls History of falls in the past 6 months: No known history Medications/Substances Others:: Antihypertensives Medications/substances used within the past 24 hours or ordered to administer: 1-2 of the medications/substances listed above Total Score Total Points:: 1 RN Summary of Impressions Impressions Recommendations Impressions: Psychiatric Issues: OCD Impression: General Medical Conditions: Client's BP is 179/94 HR 78 - Client states I am having a panic attack right now, this is my 5th one of the day. Client is on Losartan for BP but takes at HS. Level of Care How do the client's current symptoms and functional deficits support need for this level of care?: Client was referred to IOP by [facility] ER for OCD symptoms and depression. Client reports racing thoughts, obsessions and compulsions around contamination and illness, and panic attacks. Client states she has been having several panic attacks per day everyday for the last year or so. Client had carpal tunnel surgery on her left wrist in February, and states her mental health has spiraled more since then as due to the recovery for this surgery is she unable to do her routines related to cleanliness. Client states she finds it hard to eat food or drink water due to fear of contamination. Client is tearful and reports I feel like the bad parts of my life just play on a constant loop in my mind. Client reports thoughts of suicide in the past, but denies current SI. Client states she fears getting an illness that will kill her, and states she does not want to . Client states she stopped taking much of her medication 1.5 months ago because she was convinced she didn't need it and that it wasn't helping her. Client reports she reads the side effects of medications and states it's easy to convince myself I have the side effects. IOP will promote gains and prevent further decompensation while providing social support and skills training.
[2025-04-10 10:05] VITALS: BP 179/94; PULSE 78
--- NOTE | 2025-04-10 10:15 | BH.SGPN.GN ---
Behaviors/Verbalizations/Mental Status: []Pt alert and oriented, neatly dressed and groomed. Eye contact good. Motor activity restless. Speech within normal limits. Affect congruent, mood anxious and depressed. Thoughts linear, logical, no signs of hallucinations or delusions. Client Response/Progress/Benefit: [] Pt participated during small group discussions. Attentive during psychoeducation about defense mechanisms. Showed engagement during small group discussions and helped group identify which defense mechanisms were maladaptive, adaptive, or ?somewhere in the akhtar.? Pt worked with small group on identifying how each defense mechanism can impact mental health and gave examples. Pt stated she has gained awareness that ?I do all of these things and I finally have a name for them.? Pt reported benefits from identifying examples of different defense mechanisms and normalizing why they are used. Seemed to benefit from gaining awareness about the different defense mechanisms. Pt to continue IOP tx to prevent decompensation, improve daily functioning, and increase strategies to improve ability to manage OCD. Narrative Note: []
--- NOTE | 2025-04-10 14:57 | BH.MDN_ITS ---
Multi-Disciplinary Note Note 45-min Individual: Time Started:: 11:32 Date: 04/10/25 Purpose of session/treatment goals addressed:: To provide emotional support, instill hope, and discuss plan of care. Eye Contact:: Good and Fair Motor Activity:: Appropriate Appearance:: Casual Speech:: Tangential Mood:: Anxious and Dysthymic Affect:: Flat (tearful) Thoughts:: Racing and Circular Staff Interventions:: CBT techniques, strengths perspective, taught coping skills (worked on self-compassion and dialectical thinking techniques.) and other (discussed coming up with a name for pt's OCD as part of her ERP therapy.) Client Response:: Pt responded well to session, open to meeting with therapist. Pt shared she is feeling overwhelmed today and sad. Pt stated coming to IOP is both scary and gives her hope. Pt also is currently dealing with trying to set boundaries with her older sister. Pt shared I had to kick her off my phone plan, I can't keep doing it. Pt stated her sister will not take this boundary well and pt is now having intrusive thoughts that if pt does this something bad will happen to her sister. Therapist offered emotional support and reinforced pt's reasons for setting the boundary. Pt recognizes she needs to take care of herself to overcome OCD. Pt also noted that her sister is actively using and it is not helpful for Pt's mental health to continue enabling her. Pt responded well to self compassion and dialectical thinking. Pt receptive to working on naming her OCD for homework and pt also receptive to finishing the Y- BOCS assessment next week. Risks/Concerns:: Pt denies any suicidal ideations, plan, or intent. Pt denies any thoughts of . Progress Toward Goals/Plan:: Progress noted in pt's willingness to engage in tx, but symptoms are unchanged. Pt reports Dr. Thurman prescribed a medication and pt plans to take this. Pt is anxious, but willing. Pt reports she is both hopeful and anxious about IOP's effectiveness. Pt and therapist plan to meet twice a week for the next few weeks to begin ERP. Pt and therapist will meet again next week and pt is to continue IOP to prevent decompensation, and improve daily functioning. Time Stopped:: 12:10
--- NOTE | 2025-04-13 09:05 | BH.SGPN.GN ---
Behaviors/Verbalizations/Mental Status: [] Eye contact is good. Motor activity is appropriate. Appearance is casual. Speech is Appropriate. Mood is anxious amd depressed. Affect is congruent. Thoughts are linear and logical. No evidence of psychosis. Reviewed daily check in sheet and no reports of suicidal ideations or intent. Client Response/Progress/Benefit: [] Pt was an active participant in group discussions. Attentive. Daily symptom tracker notes 4/5 for anxiety, depression, and irritability. Able to identify making several changes this week which have improve mental health. She reached out to family and communicated her recent mental health struggles. Family was receptive and empathetic. She also used skills to ? push through? her anxiety and complete a task. Increase confidence. Progress noted. Benefited from group support, encouragement, and feedback. Will continue in IOP to prevent decompensation, decrease intrusive thoughts, increase healthy coping, and improve functioning Narrative Note: []
--- NOTE | 2025-04-13 10:10 | BH.SGPN.GN ---
Behaviors/Verbalizations/Mental Status: [] Client alert and oriented, casually dressed and groomed. Eye contact good. Motor activity appropriate. Speech within normal limits. Affect congruent, mood anxious. Thoughts linear, logical, no signs of hallucinations or delusions. Client Response/Progress/Benefit: [] Pt was an attentive and active participant, AEB taking notes and providing input in group discussion. Attentive during psychoeducation. Pt engaged during interactive discussion in which the group defined self-care and discussed its benefits. Group discussed barriers and benefits to self-care. Identified benefits as being more productive, feeling more grounded, feeling happier, decreased anxiety, better quality of life, and increased resilience. Pt participated in small groups where they worked to identify and challenged common self-care ?myths?. Benefited from increased awareness of self-care, its benefits, and the consequences of not utilizing self-care strategies. Will continue IOP tx to prevent decompensation, decrease anxious avoidance, and improve functioning.
--- NOTE | 2025-04-13 11:10 | BH.SGPN.GN ---
Behaviors/Verbalizations/Mental Status: []Client alert and oriented, casual appearance. Eye contact good. Motor activity appropriate. Speech within normal limits. Affect congruent, mood depressed and anxious. Thoughts linear, logical, no signs of hallucinations or delusions. Client Response/Progress/Benefit: [] Pt engaged participant AEB completing self-assessment worksheet and providing input throughout discussion. Pt completed worksheet identifying current self-care practices and what self-care activities Pt wants to start using. Pt selected physical self-care to begin practicing more consistently. Pt plans to do this by asking for help with grocery shopping. Appeared to benefit from completing the self-care evaluation and gaining insights into current self-care practices, as well as identifying areas in which Pt would like to improve upon. Pt will continue IOP tx to prevent decompensation, reduce safety behaviors, and increase distress tolerance skills. Narrative Note: []
--- NOTE | 2025-04-15 10:10 | BH.SGPN.GN ---
Behaviors/Verbalizations/Mental Status: [] Eye contact is good. Motor activity is appropriate. Appearance is casual. Speech is Appropriate. Mood is anxious. Affect is congruent. Thoughts are linear and logical. No evidence of psychosis. Client Response/Progress/Benefit: [] Pt responded well to session AEB actively participating throughout group. Pt was attentive throughout group activity discussing famous individuals and how they overcame failure to be successful. Pt helped group define fear of failure as well as how it can impact mental health and relationships. Participated in experiential activity and worked with group members to problem solve. Appeared to benefit from increased knowledge of what causes fear of failure and how it impacts people. Will continue IOP tx to prevent decompensation, decrease anxious avoidance, and improve emotion regulation.
--- NOTE | 2025-04-15 11:10 | BH.SGPN.GN ---
Behaviors/Verbalizations/Mental Status: []Pt alert and oriented, neatly dressed and groomed. Eye contact good. Motor activity appropriate. Speech within normal limits. Affect congruent, mood engaged and anxious. Thoughts linear, logical, no signs of hallucinations or delusions. Client Response/Progress/Benefit: [] Pt responded well to session, engaged in the experiential activity and attentive throughout group processing. Pt reported fear of failure has kept Pt from going to caodaism, seeing family, and being close to her . Pt completed fear of failure worksheet and was able to identify thoughts and behaviors that reinforce personal fear of failure including avoidance, self-sabotaging behaviors, and unrealistic expectations. Pt participated in small group discussion regarding strategies to overcome fear of failure. Identified wanting to work on utilizing dialectical thinking and allowing herself time to heal. Appeared to benefit from increased knowledge of strategies to combat fear of failure and gaining self-awareness. Pt will continue IOP tx to prevent decompensation, improve daily functioning, and learn how to manage OCD. Narrative Note: []
--- NOTE | 2025-04-15 14:08 | BH.MDN ---
Multi-Disciplinary Note Note 60-min Individual: Time Started:: 09:05 Date: 04/15/25 Purpose of session/treatment goals addressed:: To work on goal #1 of pt's tx plan and to practice positive self-talk. Eye Contact:: Good Motor Activity:: Restless Appearance:: Casual Speech:: Appropriate and Tangential Mood:: Anxious and Depressed Affect:: Congruent (tearful at times) Thoughts:: Racing, Circular and No evidence of hallucinations/delusions noted Staff Interventions:: psychoeducation on: (OCD and gave homework to read chapter 1 of overcoming unwanted intrusive thoughts.), CBT techniques, mindfulness skills, strengths perspective, goal setting and other (Finished the Y-BOCS assessment) Client Response:: Pt responded well to session, open to meeting with therapist. Pt reports she has been feeling more depressed because pt recently set a boundary with her sister and her sister is trying to push back on the boundary and guilt-trip pt. Pt receptive to emotional support and encouragement from therapist regarding the boundary. Pt shared last session that her sister is in active addiction, and pt felt that it was time to finally set a firm boundary so pt can focus on her own mental health and well-being. Pt completed homework from last session which was to name her OCD, and pt named her OCD Jose. This will be the name used in session during ERP and pt is encouraged to use this at home with her to begin externalizing OCD. Pt and therapist completed the Y-BOCS assessment. Pt's compulsions included cleaning items at home excessively, showering, washing hands every 30 minutes, reassurance seeking, checking her body, checking appliances and the stove, and some with order. Pt reports she feels overwhelmed still and wants her brain to slow down. Discussed the importance of completing this so pt and therapist can make a realistic hierarchy. Pt and therapist to do this Sunday. Pt was given homework to read Chapter 1 of Overcoming Unwanted Intrusive Thoughts. Risks/Concerns:: Pt denies any suicidal ideations, plan, or intent. Pt denies any thoughts of . Progress Toward Goals/Plan:: Pt is beginning her second week of IOP tx and she presents less restless and anxious. Pt reports she started taking the Abilify even though she was nervous and shared I want to beat this. Pt reports benefitting from IOP but that it is also overwhelming. Pt receptive to ERP discussion and pt receptive to completing the Y-BOCS so pt can and therapist can begin working on pt's Hierarchy construction on 04/17/25. Pt will continue IOP tx to prevent decompensation, gain distress tolerance skills, and improve daily functioning. Time Stopped:: 10:00
--- NOTE | 2025-04-17 07:56 | PCM.BH.PN ---
Intake Vital Signs 11/13/24 13:43 04/10/25 07:55 04/10/25 10:05 04/17/25 07:56 Height 5 ft 2.99 in 5 ft 2.99 in 5 ft 3 in 5 ft 3 in Weight: 183 lb 186 lb BMI 32.4 BP 154/96 H 179/94 H Respiration 18 Pulse 108 H 78 Temp 97.6 F L Pulse Oximetry (%) 100 Intake Visit Reasons: med check Allergies metoclopramide (From Reglan) Allergy (Severe, Verified 04/10/25 09:00) NEEDS FOLLOW-UP lisinopril Allergy (Intermediate, Verified 04/10/25 09:00) COUGH Medications ?Medication ?Instructions ?Recorded ?Confirmed ?Type albuterol sulfate 90 mcg/actuation 2 puff inhalation Q4H PRN PRN 10/15/24 04/10/25 Rx aerosol inhaler (Ventolin HFA) Wheezing ##1 duloxetine 60 mg capsule,delayed 60 mg PO DAILY 11/10/24 04/10/25 History release Held on 04/10/25. Instructions: stopped 1.5 months ago on her own gabapentin 300 mg capsule 300 mg PO TID 11/10/24 04/10/25 History Held on 04/10/25. Instructions: stopped taking 1.5 months ago on own losartan 100 mg tablet 100 mg PO DAILY 11/10/24 04/10/25 History potassium chloride 10 mEq 10 meq PO BID 11/10/24 04/10/25 History tablet,extended release topiramate 25 mg tablet 75 mg PO QHS 11/10/24 04/10/25 History Held on 04/10/25. Instructions: stopped taking 1.5 months ago on own- 04/10/25 aripiprazole 2 mg tablet 2 mg PO QDAY #30 tabs 04/10/25 Rx HPI () History of Present Illness History provided by: patient Chief complaint: OCD HPI: Haven Lantigua is a 49 year old female who presents today for follow up evaluation. Patient reports that things have been crazy. Feels like she is doing a better job managing the voices but finds that she is getting easily agitated. Has been taking aripiprazole, but unsure if this is exacerbating symptoms or not. Sleep has been mildly improved, not waking up as frequently. Compulsions remain the same, but feel less intense. Appetite are stable. Denies any major side effects of medications. Did have a panic attack yesterday as she had an oil leak in her car. Had to perseverate on every bad possibility before she could stop worrying so much about. Spent 9 hours obsessing over it and then was feeling very distraught. 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 Denies SI/HI or AVH. Review of systems () Constitutional Denies: fever(s), chills, change in weight or fatigue Eyes Denies: change in vision or blurry vision Ears, Nose, Mouth, Throat Reports: neck pain; Denies: throat pain or change in hearing Cardiovascular Denies: chest pain, palpitations or dyspnea Respiratory Denies: dyspnea, cough or wheezing Gastrointestinal Reports: diarrhea; Denies: abdominal pain, nausea, vomiting or constipation Genitourinary Denies: dysuria or urinary frequency Musculoskeletal Reports: back pain and neck pain; Denies: joint pain or muscle weakness Integumentary/Breast Denies: rash or new lesions Neurological Denies: headache(s), dizziness or confusion Endocrine Denies: fatigue or excessive sweating Hematologic/Lymphatic Denies: easy bruising or easy bleeding Allergic/Immunologic Denies: wheezing Exam Mental Status Exam- Psych () Appearance casually dressed Attitude guarded and bizarre (mildly) Activity/Motor Behavior MSE activity/motor behavior finding no adventitious movements Speech regular rate, regular prosody and other (somewhat tremulous) Mood anxious Affect restricted Thought Process linear, logical and coherent Thought Content no hallucinations and delusions (near borderline delusional thought) Suicidal Ideation none Homicidal Ideation none Attention intact Concentration intact Sensorium/Orientation awake, alert and oriented x3 Memory/Cognition other (appropriate for stated age) Insight fair Judgement fair Assessment & Plan () Assessment & Plan (1) OCD (obsessive compulsive disorder): Plan: - continue abilify 2 mg every day ; consider titration to 5 mg every day pending response - given her illness anxiety/distrust of medication; chose not to titrate as I fear this may lead to patient discontinuing medication if experiencing adverse side effects too abruptly (2) PTSD (post-traumatic stress disorder): Plan: - see above Medications: On Hold topiramate Hold Comment: stopped taking 1.5 months ago on own- 04/10/25 75 mg PO QHS gabapentin Hold Comment: stopped taking 1.5 months ago on own 300 mg PO TID duloxetine Hold Comment: stopped 1.5 months ago on her own 60 mg PO DAILY Charges/Coding Multi Select Codes Behavior Health Behavior Health EST Pt E/M: 26273 Est Pt Level IV
--- NOTE | 2025-04-17 09:05 | BH.SGPN.GN ---
Behaviors/Verbalizations/Mental Status: [] Pt alert and oriented, neatly dressed and groomed. Eye contact good. Motor activity appropriate. Speech within normal limits. Affect congruent, mood present and anxious. Thoughts linear, logical, no signs of hallucinations or delusions. Reviewed pt?s symptom tracker, no risk for suicidal ideation, plan, or intent 04/17/25. Client Response/Progress/Benefit: []Pt was an active participant in group discussions. Attentive. Able to identify mental health wins including ?I deleted an jannette off my phone that was just distracting me and I spent yesterday problem-solving my car.? Pt's stressor today is ?something is wrong with my car and my finances.? The group offered pt encouragement and emotional support which pt reported was helpful. Pt is feeling overwhelmed.? this morning. Pt receptive to feedback from peers. Benefited from group support, encouragement, and feedback. Progress noted. Will continue IOP tx to prevent decompensation, improve daily functioning, and reduce compulsions. Narrative Note: []
--- NOTE | 2025-04-17 14:40 | BH.MDN ---
Multi-Disciplinary Note Note 60-min Individual: Time Started:: 10:30 Date: 04/17/25 Purpose of session/treatment goals addressed:: To work on goal #1 of pt's tx plan by beginning pt's heirarchy. Eye Contact:: Fair Motor Activity:: Appropriate Appearance:: Casual Speech:: Appropriate and Tangential Mood:: Anxious Affect:: Congruent Thoughts:: Racing, Other (easily distracted) and No evidence of hallucinations/delusions noted Staff Interventions:: motivational interviewing, psychoeducation on: (impulses vs compulsions), CBT techniques, strengths perspective, taught coping skills (taught distress tolerance skills.) and other (reviewed chapter 1 from the overcoming unwanted intrusive thoughts book and started pt's fear ladder.) Client Response:: Pt responded well to session, open to meeting with therapist. Pt reports she is confused about the fear ladder as pt worries everything is a compulsion. This led to a discussion of the difference between a compulsion and an impulse. Pt able to see that spending money and buying things she does not need is an impulse, but needing to scrub herself excessively to avoid disease is a compulsion. Pt discussed items that could go on her fear ladder including not memorizing items in the bathroom, walking past the bathroom holding her toothbrush, and washing her hands every hour instead of every half hour. Pt shared she feels very anxious about this and feels negatively about her ability to do this. Pt responded well to being reminded of other pts that have been successful with ERP. Pt and therapist reviewed the first chapter of Overcoming Unwanted Intrusive Thoughts book and pt stated she did not know that most people have intrusive thoughts. Pt learned about the three voices of the mind and why the goal is not to fight with intrusive thoughts, but accept them and give them less value. Pt learned about distress tolerance and thoughts are thoughts not facts. Pt has named her OCD which helps pt identify her intrusive thoughts more at home and in session. Pt is encouraged to read chapter three from the book and to rate items discussed on the fear ladder. Risks/Concerns:: Pt denies any suicidal ideations, plan, or intent. Pt denies any thoughts of . Progress Toward Goals/Plan:: Pt is making some progress AEB her medication compliance, report of gaining healthy coping skills, and pt gaining insight on how to manage intrusive thoughts. Pt reports the information from the book has been helpful and pt plans to buy it. Pt admits to being confused about the fear ladder, so pt would benefit from not having the entire fear ladder as pt reports she wants to jump to the higher ones. Pt's symptoms of OCD continue to impact her daily functioning and are harming her relationships. Pt also endorses negative thinking patterns that reinforce depression. Pt will continue IOP tx to prevent decompensation, improve daily functioning, and increase distress tolerance. Time Stopped:: 11:30
--- NOTE | 2025-04-23 09:00 | BH.SGPN.GN ---
Behaviors/Verbalizations/Mental Status: [] ?Eye contact is good. Motor activity is appropriate. Appearance is casual. Speech is Appropriate. Mood is agitated, anxious. Affect is congruent. Thoughts are linear and logical. No evidence of psychosis. Reviewed daily check in sheet and no reports of suicidal ideations or intent. Client Response/Progress/Benefit: [] ?Pt was an active participant in group discussions. Attentive. Did well to identify 2 mental health wins including managing to ?stop an autopilot moment? yesterday when tempted to give into a compulsion. Stated that she used opposite action and positive self-talk to do so. Additional win noted as actually sitting and finishing a cup of coffee rather than allowing herself to get distracted and not finish it. Stressor noted as ongoing difficulties with challenging all or nothing thoughts when faced with a setback. Progress noted. Benefited from group support, encouragement, and feedback. Will continue in IOP to prevent decompensation, promote mood stability, and increase healthy coping consistency. Narrative Note: []
--- NOTE | 2025-04-23 10:10 | BH.SGPN.GN ---
Behaviors/Verbalizations/Mental Status: [] Client alert and oriented, casually dressed and groomed. Eye contact good. Motor activity appropriate. Speech within normal limits. Affect congruent, mood euthymic. Thoughts linear, logical, no signs of hallucinations or delusions. Client Response/Progress/Benefit: [] Client responded well to session, contributing to discussion and engaged during the activity. Group identified the benefits of change which included: increased confidence, progressing towards goals, and improving mental and physical health. Worked with the group to identify barriers to change, which included: uncomfortable emotions such as anxiety, lack of energy, lack of supports, and negative influences. Client shared how she didn't even realize changes that needed to happen until her brought it to her attention. Client participated along with group in activity where they identified and discussed the emotions related to change. Benefited from increased awareness and understanding of emotions, benefits, and barriers related to change. Will continue IOP tx to continue to combat distortions that reinforce obsessions, anxiety, and depression. Narrative Note: []
--- NOTE | 2025-04-23 11:10 | BH.SGPN.GN ---
Behaviors/Verbalizations/Mental Status: [] Client alert and oriented, casually dressed and groomed. Eye contact good. Motor activity appropriate. Speech within normal limits. Affect congruent, mood euthymic. Thoughts linear, logical, no signs of hallucinations or delusions Client Response/Progress/Benefit: [] Client responded well to session, attentive. Did well to process activity and work with group to relate the strategies used to overcome barriers in the activity to managing change in own life. Client identified a change they would like to make is controlling autopilot thoughts. Client identified currently being in preparation stage for this particular change. Client stated goal is to do is having consistently with mh appointments. Appeared to benefit from identifying a small goal to work towards. Client will continue IOP tx to prevent decompensation, gain healthy coping skills, and improve daily functioning. Narrative Note: []
--- NOTE | 2025-04-23 12:14 | PCM.BH.PN ---
Intake Vital Signs 11/13/24 13:43 04/10/25 07:55 04/10/25 10:05 04/17/25 07:56 04/23/25 12:14 Height 1.6 m 1.6 m 1.6 m 1.6 m 1.6 m Weight: 84.368 kg BP 179/94 H Pulse 78 Intake Visit Reasons: OCD (obsessive compulsive disorder) Allergies metoclopramide (From Reglan) Allergy (Severe, Verified 04/10/25 09:00) NEEDS FOLLOW-UP lisinopril Allergy (Intermediate, Verified 04/10/25 09:00) COUGH Medications ?Medication ?Instructions ?Recorded ?Confirmed ?Type albuterol sulfate 90 mcg/actuation 2 puff inhalation Q4H PRN PRN 10/15/24 04/10/25 Rx aerosol inhaler (Ventolin HFA) Wheezing ##1 duloxetine 60 mg capsule,delayed 60 mg PO DAILY 11/10/24 04/10/25 History release Held on 04/10/25. Instructions: stopped 1.5 months ago on her own gabapentin 300 mg capsule 300 mg PO TID 11/10/24 04/10/25 History Held on 04/10/25. Instructions: stopped taking 1.5 months ago on own losartan 100 mg tablet 100 mg PO DAILY 11/10/24 04/10/25 History potassium chloride 10 mEq 10 meq PO BID 11/10/24 04/10/25 History tablet,extended release topiramate 25 mg tablet 75 mg PO QHS 11/10/24 04/10/25 History Held on 04/10/25. Instructions: stopped taking 1.5 months ago on own- 04/10/25 aripiprazole 5 mg tablet (Abilify) 5 mg PO QHS 30 days #30 tabs 04/23/25 Rx HPI () History of Present Illness History provided by: patient Chief complaint: Stressed out HPI: Patient reports she feels stressed out right now as her car broke down again and then yesterday she had a panic attack when she found a tick on her, then a friend said maybe she had poison sirena and now even though she does not have a rash or necessarily feel itchy she keeps scratching all over. Did not come yesterday but she reports she had diarrhea but after taking antidiarrheal medicine that resolved and she is feeling better. Does note yesterday she had a breakthrough as she was about to get distracted during a task but was able to mentally reroute herself and then complete her task. She does note that the Abilify is helpful and she feels that her overall anxiety, while still there, is improved and she is no longer feeling like she is always having heart attacks. Denies any SI/HI, no AH/VH. She feels she is tolerating the Abilify well, discussed going up on the Abilify to 5 mg and she is agreeable to this. 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 She is agreeable to going home and brainstorming further options as she notes she only has about a month and a half left of money to support her and her and after that she is very concerned that she will become homeless again Developmental History Developmental History: KETTY is the [ ORDER]. The pt was born and raised in [ ]. Education level completed [ ]. Pt describes his/her childhood as [ ]. Exam Mental Status Exam- Psych () Appearance casually dressed and other (Wearing a visor and bright red garment with black labs with the fingers cut) Attitude pleasant and friendly Activity/Motor Behavior other (Has some exaggerated movements) Speech other (Slightly fasted time with regular volume) Mood euythmic Affect other (Broad) Thought Process other (Occasionally jumps around slightly but overall able to follow) Thought Content no delusions and no hallucinations Suicidal Ideation none Homicidal Ideation none Attention other (Slightly impaired and distractible) Sensorium/Orientation awake and alert Memory/Cognition intact Insight fair Judgement fair Assessment & Plan () Assessment & Plan (1) OCD (obsessive compulsive disorder): Plan: Patient has thus far found Abilify helpful and noted that she was able to complete a task without getting derailed. She is tolerating this well with improvements in anxiety and somatic/physical symptoms though still with room for improvement. Patient agreeable to going up to 5 mg of Abilify (2) PTSD (post-traumatic stress disorder): Plan: Increasing Abilify to 5 mg, continue adjustments and supportive care, patient continuing IOP Medications: New aripiprazole (Abilify) 5 mg PO QHS [address] tabs [address] Susanne Strong MD Discontinued aripiprazole Discontinued Reason: Ordered 2 mg PO QDAY 30 tabs 2RF F42.9 - Obsessive-compulsive disorder, unspecified On Hold topiramate Hold Comment: stopped taking 1.5 months ago on own- 04/10/25 75 mg PO QHS Aury Mendiola gabapentin Hold Comment: stopped taking 1.5 months ago on own 300 mg PO TID Aury Mendiola duloxetine Hold Comment: stopped 1.5 months ago on her own 60 mg PO DAILY Aury Mendiola Visit Details Comments: Spent a total of [ ] minutes on the date of the service which included [ ]. Charges/Coding Behavior Health Behavior Health EST Pt E/M: 01703 Est Pt Level IV
--- NOTE | 2025-05-01 12:01 | BH.MDN ---
Multi-Disciplinary Note Note 60-min Individual: Time Started:: 10:05 Date: 05/01/25 Eye Contact:: Good and Fair Motor Activity:: Appropriate Appearance:: Neat Speech:: Appropriate Mood:: Anxious and Depressed Affect:: Congruent (tearful) Thoughts:: Racing, Other (obsessive thoughts about contamination) and No evidence of hallucinations/delusions noted Time Stopped:: 11:00
== END 2025-04-23 23:59 ==
LOC: BHIOP 09:42
PROVIDERS: Referring Provider Student in an Organized Health Care Education/Training Program; Visit Provider Student in an Organized Health Care Education/Training Program
DX: F42.9 Obsessive-compulsive disorder, unspecified (principal); F43.10 Post-traumatic stress disorder, unspecified; Z79.899 Other long term (current) drug therapy; I10 Essential (primary) hypertension
CPT/HCPCS: H2012; H2020; S9480; 90834; 90837

== ENCOUNTER 2025-04-24 07:51 | Outpatient (RCR) | payer MEDICAID, SELFPAY ==
--- NOTE | 2025-04-24 09:05 | BH.SGPN.GN ---
Behaviors/Verbalizations/Mental Status: [] Eye contact is good. Motor activity is appropriate. Appearance is casual. Speech is Appropriate. Mood is depressed and irritable. Affect is congruent. Thoughts are linear and logical. No evidence of psychosis. Reviewed daily check in sheet and no reports of suicidal ideations or intent. Client Response/Progress/Benefit: [] Pt participated at times during the group discussions. Attentive. Daily symptom tracker notes 4/5 for depression, anxiety, and agitation. Struggled to identify mental health wins. Reports ? rollercoaster? of emotions and feeling ?disconnected? today. She briefly discussed triggers and thoughts that were impacting her emotions. Limited progress noted. Benefited from group support and encouragement. Will continue in IOP to prevent decompensation, decrease intrusive thoughts, and improve functioning. Narrative Note: []
--- NOTE | 2025-04-24 10:10 | BH.SGPN.GN ---
Behaviors/Verbalizations/Mental Status: [] Eye contact is good. Motor activity is appropriate. Appearance is casual. Speech is Appropriate. Mood is anxious. Affect is congruent. Thoughts are linear and logical. No evidence of psychosis. Client Response/Progress/Benefit: [] Pt was engaged and participating throughout, providing input and taking notes. Attentive during psychoeducation on anxiety and cognitive triangle. Participated in an interactive discussion on defining anxiety and identifying cognitive and physiological symptoms of anxiety. The group discussed helpful vs harmful anxiety. Pt identified their physical/physiological signs of anxiety which includes:upset stomach, tense muscles, and rapid breathing. Benefited from increased awareness and insight on anxiety and its impact. Will continue in IOP to prevent decompensation, decrease anxious avoidance, and challenge anxious thoughts.
--- NOTE | 2025-04-24 11:15 | BH.SGPN.GN ---
Behaviors/Verbalizations/Mental Status: [] Eye contact is good. Motor activity is appropriate. Appearance is disheveled. Speech is Appropriate. Mood is anxious. Affect is congruent. Thoughts are linear and logical. No evidence of psychosis. Client Response/Progress/Benefit: [] Pt was an active participant AEB pt providing input and listening attentively to peers. Attentive during psychoeducation on mindfulness coping skills, body-based coping skills, and mind-based coping skills and their impact on reducing anxiety and improving overall mental health wellness. Group was able to identify self-soothing and mind-based coping skills which included: 5-senses, meditation, deep breathing,walking/exercise, music, engaging with others, opposite-action, and affirmations. Pt verbalized skill to make effort to use this week as cooking or baking. Pt will continue IOP to prevent decompensation, stabilize anxiety, increase healthy coping, and improve functioing. Narrative Note: []
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
--- NOTE | 2025-04-27 10:10 | BH.SGPN.GN ---
Behaviors/Verbalizations/Mental Status: [] Eye contact is fair. Motor activity is appropriate. Appearance is casual. Speech is Appropriate. Mood is anxious and dysthymic. Affect is constricted. Thoughts are linear and logical. No evidence of psychosis. Client Response/Progress/Benefit: [] Pt was an active participant in group discussions. Attentive during psychoeducation on the 4 communication styles (Passive, Passive-Aggressive, Aggressive, and Assertive) and the obstacles to effective communication. Contributed during interactive discussion on the benefits of communicating effectively. Worked well with peers to identify the benefits and disadvantages to the different communication styles. Pt believes that she is primarily passive and can become aggressive when feels needs are not met. Pt stated she often will let others make choices for her. Benefited from increased understanding of communication styles and how these can impact effective communication. Will continue in IOP to decrease anxious avoidance, improve coping, and prevent decompensation.
--- NOTE | 2025-04-27 11:15 | BH.SGPN.GN ---
Behaviors/Verbalizations/Mental Status: []Pt alert and oriented, casually dressed and groomed. Eye contact good. Motor activity restless. Speech within normal limits. Affect congruent, mood anxious. Thoughts linear, logical, no signs of hallucinations or delusions. Client Response/Progress/Benefit: [] Pt responded well to session AEB Pt listening attentively to others and providing input during group discussion on the pay offs and costs of the different communication styles. Pt able to connect how current communication style impacts mental health. Connected with peers? comments about the importance of using assertive communication. Pt seemed to benefit from increasing awareness of healthy strategies to improve communication and worked with peers during the experiential activity to practice assertive communication. Pt reported wanting to work on ?planning what I?m going to say before I say it.? Will continue IOP tx to prevent decompensation, increase distress tolerance skills, and improve daily functioning. ? Narrative Note: []
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
--- NOTE | 2025-04-28 09:00 | BH.SGPN.GN ---
Behaviors/Verbalizations/Mental Status: [] Pt alert and oriented, neatly dressed and groomed. Eye contact good. Motor activity appropriate. Speech within normal limits. Affect congruent, mood agitated and engaged. Thoughts linear, logical, no signs of hallucinations or delusions. Reviewed pt?s symptom tracker, no risk for suicidal ideation, plan, or intent 04/28/25. Client Response/Progress/Benefit: []Pt was an active participant in group discussions. Attentive. Able to identify mental health wins including ?I played basketball for an hour yesterday and I read my OCD book.? Pt's stressor today is ?I read chapter 3 of my OCD book and it made me mad at myself.? The group offered pt encouragement and emotional support which pt reported was helpful. Pt is feeling a little angry and happy? this morning. Pt receptive to feedback from peers. Progress noted. Benefited from group support, encouragement, and feedback. Will continue IOP tx to increase distress tolerance skills, reduce compulsions, and increase self-confidence. Narrative Note: []
--- NOTE | 2025-04-28 10:00 | BH.SGPN.GN ---
Behaviors/Verbalizations/Mental Status: [] Eye contact is good. Motor activity is appropriate. Appearance is casual. Speech is Appropriate. Mood is euthymic. Affect is full. Thoughts are linear and logical. No evidence of psychosis. Client Response/Progress/Benefit: [] Pt responded well to session, attentive and engaged. Group participated in the discussion defining stigma as well as what stigma has kept pt's from doing in their lives. Pt stated mental health stigma has kept pt from being honest with her family. Pt worked with peers to begin discussion of what reinforces stigma, both socially and internally, and this was discussed further in the next group. Pt appeared to benefit from learning about the different types of stigma as well as gaining awareness of how stigma has personally impacted pt. Will continue in IOP to prevent decompensation, increase healthy coping, decrease intrusive thoughts, and improve functioning.
--- NOTE | 2025-04-28 11:10 | BH.SGPN.GN ---
Behaviors/Verbalizations/Mental Status: []Pt alert and oriented, casually dressed and groomed. Eye contact good. Motor activity appropriate. Speech within normal limits. Affect congruent, mood anxious. Thoughts linear, logical, no signs of hallucinations or delusions. Client Response/Progress/Benefit: [] Pt engaged participant AEB participating in the activity, providing input during small group discussion, and listening attentively to others. Pt appeared to connect with discussion in the benefits of addressing mental health stigma which included: improved relationships, increased willingness to seek help, increased happiness, and improved confidence. Group brainstormed strategies to combat social and perceived stigma. Pt shared one thing pt can do to combat stigma is to be mindful of the language she is using in regards to mental health. Appeared to benefit from increasing awareness of strategies to combat stigma. Pt is to continue IOP to continue working on exposure anxiety goals, improve confidence, and prevent decompensation.
--- NOTE | 2025-05-01 09:05 | BH.SGPN.GN ---
Behaviors/Verbalizations/Mental Status: [] Pt alert and oriented, neatly dressed and groomed. Eye contact fair. Motor activity appropriate. Speech within normal limits. Affect congruent-tearful, mood depressed.. Thoughts linear, logical, no signs of hallucinations or delusions. Reviewed pt?s symptom tracker, no risk for suicidal ideation, plan, or intent 05/01/25. Client Response/Progress/Benefit: []Pt was an active participant in group discussions. Attentive. Able to identify mental health wins including painting her nails to distract from cleaning and being done with physical therapy. Pt's stressor today is ?I did something stupid, and I reached out to my stepmother for validation and I?m not getting any.? The group offered pt encouragement and emotional support which pt reported was helpful. Pt reminded by therapist and peers that her emotions are valid even when those minimize it. Pt is feeling hurt and angry? this morning. Pt receptive to feedback from peers. Progress noted. Benefited from group support, encouragement, and feedback. Will continue IOP tx to increase distress tolerance skills, reduce compulsions, and increase self-confidence. Narrative Note: []
--- NOTE | 2025-05-01 11:00 | BH.SGPN.GN ---
Behaviors/Verbalizations/Mental Status: []Eye contact is good. Motor activity is appropriate. Appearance is casual. Speech is Appropriate. Mood is depressed and anxious. Affect is congruent. Thoughts are linear and logical. No evidence of psychosis. Client Response/Progress/Benefit: [] Pt was an engaged participant in group discussion and activity. Worked with group to identify strategies to help overcome barriers and obstacles to desired reality. Group developed strategies for the common barriers. Identified personal barriers to desired reality and choose one obstacle to work on. Pt stated wanting to work on barrier of people pleasing by practicing saying no to people who will respect her. Pt seemed to benefit from increased repertoire of healthy coping skills/strategies to overcome common barriers to moving forward. Pt is to continue IOP prevent decompensation, improve daily functioning, and increase distress tolerance skills. Narrative Note: []
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
--- NOTE | 2025-05-04 09:05 | BH.SGPN.GN ---
Behaviors/Verbalizations/Mental Status: [] Eye contact is good. Motor activity is appropriate. Appearance is casual. Speech is Appropriate. Mood is anxious. Affect is congruent. Thoughts are linear and logical. No evidence of psychosis. Reviewed daily check in sheet and no reports of suicidal ideations or intent. Client Response/Progress/Benefit: [] Pt was an active participant in group discussions. Attentive. States that she is returning to work this week. States ? I was bullied into a full-time job?. 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 She was evasive on if this would be beneficial or not as well as if this could overwhelm her due to recent mental health struggles. She struggled to identify any mental health wins over the weekend. ? I was busy but no a good busy?. Emotion for today is ?disappointed?. Limited progress noted. Benefited from group support, encouragement, and feedback. Will continue in IOP to maintain safety, stabilize mood, decrease intrusive thoughts, and improve functioning. Narrative Note: []
--- NOTE | 2025-05-04 10:05 | BH.SGPN.GN ---
Behaviors/Verbalizations/Mental Status: []Pt alert and oriented, neatly dressed and groomed-wearing makeup. Eye contact good. Motor activity appropriate. Speech within normal limits. Affect congruent, mood anxious. Thoughts linear, logical, no signs of hallucinations or delusions. Client Response/Progress/Benefit: [] Pt receptive to session AEB contributing to group discussion, as well as listening attentively to others, and taking notes. Worked with group to brainstorm the positive and negative aspects of stress on physical and mental health as well as the impact of distress on performance, relationships, and mental health. Pt shared their current personal top stressors to be: her mental health, work, and relationship with her . Shared when feeling overwhelmed with stress pt tends to avoid and want to run away and pt becomes dysregulated. Benefited from increased awareness of positive and negative stress as well as how stress impact individuals. Will continue IOP tx to increase distress tolerance skills, improve daily functioning, and reduce negative self-talk. ??? Narrative Note: []
--- NOTE | 2025-05-04 11:10 | BH.SGPN.GN ---
Behaviors/Verbalizations/Mental Status: []Eye contact is good. Motor activity is appropriate. Appearance is casual. Speech is Appropriate. Mood is anxious. Affect is congruent. Thoughts are linear and logical. No evidence of psychosis. Client Response/Progress/Benefit: [] Pt was an attentive participant in group discussions and actively engaged during experiential activity, doing well to regulate their emotions throughout the activity and work with peers. Attentive during psychoeducation on the 4 A's (Avoid, adapt, alter, accept) of coping with stress. Shared that they would benefit most from practicing saying no unnecessary stressors. Was able to identify the connection between the experiential activity and utilization of stress management skills. Benefited from increased awareness of stress management strategies. Pt will continue IOP to continue working on fear ladder, challenge negative thoughts, and preventing decompensation.
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
--- NOTE | 2025-05-06 10:10 | BH.SGPN.GN ---
Behaviors/Verbalizations/Mental Status: []Pt alert and oriented, casually dressed and groomed. Eye contact good. Motor activity appropriate. Speech within normal limits. Affect congruent, mood dysthymic. Thoughts linear, logical, no signs of hallucinations or delusions. Client Response/Progress/Benefit: [] Pt participated during the group discussion, providing input and remaining attentive during psychoeducation. Participated in experiential activity. Pt contributed during interactive discussion on the consequences of unhealthy expression of emotions. Worked with group to identify several consequences which included hurting relationships and isolating oneself. Contributing during interactive discussion on common potholes to effectively communicating. Identified personal communication pothole as struggling with knowing what to communicate. Pt was able to relate and make connections between the experiential activity and the overall topic, managing emotions through activity by using calming skills and self-talk. Benefited from increased awareness of how stress and emotions can impact one's ability to communicate. Will continue in IOP to promote use of healthy coping skills, reduce negative thinking patterns, and improve mood stability. Narrative Note: []
--- NOTE | 2025-05-06 11:10 | BH.SGPN.GN ---
Behaviors/Verbalizations/Mental Status: [] Eye contact is good. Motor activity is appropriate. Appearance is casual. Speech is Appropriate. Mood is anxious. Affect is congruent. Thoughts are linear and logical. No evidence of psychosis. Client Response/Progress/Benefit: [] Client engaged in session AEB client listening attentively to peers and providing input. Attentive during psychoeducation on 4 zones of regulation. Pt able to identify feelings and behaviors for each zone. Pt identified coping skills one can use to support self in each zone. Pt reports skills she wants to practice to get out of the yellow zone are: breathing exercises, pros/cons list, and exercise. Benefited from increased education on zones of regulation or stages of alertness for emotions and healthy coping skills to use for each zone. Pt will continue IOP tx to prevent decompensation, decrease anxious avoidance, and improve daily functioning.
--- NOTE | 2025-05-06 14:01 | BH.MDN ---
Multi-Disciplinary Note Note Family: Time Started:: 11:55 Date: 05/06/25 Purpose of session/treatment goals addressed:: To include pt's spouse in pt's treatment by providing psychoeducation on OCD and discussing strategies to support pt. Eye Contact:: Good Motor Activity:: Appropriate Appearance:: Casual Speech:: Appropriate and Tangential Mood:: Anxious Affect:: Congruent Thoughts:: Racing and No evidence of hallucinations/delusions noted Staff Interventions:: thought challenging, psychoeducation on: (OCD and helping someone with OCD), CBT techniques, mindfulness skills and strengths perspective Client Response:: Pt responded well to session, open to meeting with therapist. Pt's , Noa, is present for session and he is hoping to learn how to better help pt. Pat noted that he is does not know what to do because pt is broken and he feels that he makes things worse. Pt shared that there are things he does that are very helpful including encouraging pt and being there for her when she feels overwhelmed. Therapist helped pt and challenge the idea of pt being broken by discussed what OCD and how it is an issue with processing, not a personal flaw. Discussed what fuels OCD and why pt is working on ERP to reduce her OCD symptoms. Pt shared with her that she is making progress, but it just takes time which therapist reinforced. Discussed different kind of support her could provide including in pt's words not enabling. Pt shared there are times I know I'll get away with avoiding and I need you to not give me a choice. Pt shared one of the things she consistently avoids is going to other people's campers/houses and this is important to her because it allows them to hang out with friends. Pt stated I need you to tell me I have to go, but let me have a moment of frustration first. Pt has been working on avoiding less as avoidance has been used to prevent pt from facing any OCD triggers. Pt noted she has been going out to play basketball and pt is finding benefit in this. Pt's was receptive to this, but he made a joke about pt's physical anxiety symptoms and pt shared she did not appreciate this. Pt was able to provide education her OCD and ask for help from her spouse which were pt's goals for the session. Risks/Concerns:: Pt denies any suicidal ideation, plan, or intent. Pt denies any thoughts of . Progress Toward Goals/Plan:: Pt continues to make progress towards her [place] goals AEB pt's report of engaging in less compulsions and being consistent with her ERP goals. Pt also noted that she has less racing thoughts on the Abilify, but pt feels that she is too groggy on the dose she is on and would like to know if she can decrease this. Therapist will discuss this with IOP psychiatrists. Pt did well in session to identify ways her could continue to support her. Pt will continue IOP tx to increase distress tolerance skills, further reduce compulsions, and improve daily functioning. Time Stopped:: 12:45
--- NOTE | 2025-05-07 09:05 | BH.SGPN.GN ---
Behaviors/Verbalizations/Mental Status: []Pt alert and oriented, casually dressed and groomed. Eye contact good. Motor activity appropriate. Speech within normal limits. Affect congruent, mood euthymic. Thoughts linear, logical, no signs of hallucinations or delusions. Reviewed pt?s symptom tracker, no risk for suicidal ideation, plan, or intent 05/07/25 Client Response/Progress/Benefit: []Pt was an active participant in group discussions. Attentive. Able to identify mental health wins including being able to challenge herself to step away from her garden when realizing she had been obsessing over it. Additional win noted as having a productive family session with her yesterday. Shared gaining helpful insight. Stressor noted as having to give up on my garden after putting a lot of effort and energy into it. Benefited from group support, encouragement, and feedback. Will continue in IOP to prevent decompensation, continue to gain healthy coping skills, and promote ongoing mood stability. Narrative Note: []
--- NOTE | 2025-05-07 10:05 | BH.SGPN.GN ---
Behaviors/Verbalizations/Mental Status: [] Eye contact is good. Motor activity is appropriate. Appearance is casual. Speech is Appropriate. Mood is anxious. Affect is congruent. Thoughts are linear and logical. No evidence of psychosis. Client Response/Progress/Benefit: [] Client responded well to session, contributing to discussion and engaged during the activity. Attentive during interactive discussions and psychoeducation. Group identified the benefits of change as well as common emotions associated with change. Group identified several emotions associated with change (anxious, excited, overwhelmed, discouraged, torn, embarrassed, exhausted, cautious, and guilty) and discussed how these emotions can be both positive (motivate one to change) and also be an obstacle to change. Benefited from increased awareness and understanding of emotions, benefits, and barriers related to change. Will continue IOP to prevent decompensation, stabilize mood, decrease intrusive thoughts, increase healty coping, and improve functioning.
--- NOTE | 2025-05-07 11:15 | BH.SGPN.GN ---
Behaviors/Verbalizations/Mental Status: []Client alert and oriented, casually dressed and groomed. Eye contact good. Motor activity appropriate. Speech within normal limits. Affect congruent, mood euthymic. Thoughts linear, logical, no signs of hallucinations or delusions Client Response/Progress/Benefit: [] Pt responded well to session, attentive. Did well to process activity and work with group to relate the strategies used to overcome barriers in the activity to managing change in own life. Pt identified a change they would like to make is ?to keep working on my ERP goals and reduce OCD.? Pt identified currently being in action stage for this change. Pt stated goal is to ?do my exposure homework today?. Appeared to benefit from identifying a small goal to work towards. Pt will continue IOP tx to promote mood stability, increase distress tolerance, and reduce compulsions. ?? Narrative Note: []
--- NOTE | 2025-05-07 14:09 | BH.MDN_ITS ---
Multi-Disciplinary Note Note 45-min Individual: Time Started:: 12:10 Date: 05/07/25 Purpose of session/treatment goals addressed:: To work on session one of ERP and process the experience. Another goal was to review healthy coping skills. Eye Contact:: Good Motor Activity:: Appropriate Appearance:: Casual Speech:: Appropriate Mood:: Anxious Affect:: Congruent (tearful) Thoughts:: Racing and No evidence of hallucinations/delusions noted Staff Interventions:: CBT techniques, strengths perspective, taught coping skills and other (completed an ERP session for 20 minutes ) Client Response:: Pt responded well to session, open to meeting with t herapist. Pt reports feeling anxious today, but motivated. Pt stated the family session with her was both good and frustrating as pt shared her continues to label pt broken. Pt shared it was helpful that he got more information on OCD and how to support pt, but pt hopes he follows through. Pt has been consistent with her exposure goals at home and she reports being able to ignore Jose which is pt's OCD voice on a more consistent basis. Pt also reports less compulsions including less scrubbing herself after being contaminated and less cleaning. Pt is still avoiding going into other people's houses, drinking things without lids, and pt engages in several checking behaviors still. Pt receptive to creating new exposure goals for this weekend and next week. Pt's home exposure goal is to flush the toilet without checking her urine. This goal pt rated as a 5/6 out of 10 for SUDs as pt reports she does this because pt has a fear that she will have something wrong with her leading to disease/ depending on her urine color. Pt felt anxious about this, but she was ready to take on this goal. Discussed response prevention strategies including not checking the toilet paper, shutting the lid, and not doing other checking behaviors on her body. Pt's in session ERP is going to be drinking out of a cup that has no lid while repeating to herself germs are definitely getting in there. Pt rated her SUDs a 7 out of 10 at the beginning and noted her rapid heart beat and her OCD thoughts telling her not to drink it because it is contaminated. Pt stared at the drink for a while before feeling ready to drink it. Pt reported I'm worried I'm going to gag and throw it up. One thing pt has struggled with is gagging due to her OCD telling pt things are contaminated. Therapist provided pt with emotional encouragement and reminded pt to use her peñaloza mind skills. Right before pt took a drink, pt noted that there was a hair in her cup and pt had to get it out. This heightened pt's OCD thoughts and pt shared I just want to dump it, but pt drank it anyway. Pt was able to keep the drink down and pt noted that a few minutes after drinking it, she was less anxious, but still having racing thoughts. Pt reminded not to engage in compulsions later as pt is working on disproving her fears and these cannot be disproved if pt engages in her compulsions. Pt is doing well and was provided lots of encouragement. Risks/Concerns:: Pt denies any suicidal ideation, plan, or intent. Pt denies any thoughts of . Progress Toward Goals/Plan:: Pt continues to make progress towards her tx goals AEB pt working on her ERP goals consistently both at IOP and outside the IOP setting. Pt reports seeing progress in her reduction of physical anxiety symptoms (shaking) and confidence and managing her intrusive thoughts. Pt continues to avoid things because of her OCD and pt reports every day I'm fighting my OCD but pt shared she is more hopeful each day. Pt will continue IOP tx to prevent decompensation, further increase distress tolerance, and improve daily functioning. Time Stopped:: 12:50
--- NOTE | 2025-05-07 14:22 | BH.TPR ---
Treatment Plan Review Demographics Date of Admission:: 04/08/25 Date of Treatment Plan Review:: 05/07/25 Admitting Diagnoses:: OCD F42; PTSD Current Diagnoses:: OCD F42; PTSD Patient Status Patient's Response to Treatment:: Pt has responded well to session AEB consistently attending IOP and engaging in both individual and group therapy sessions. Pt consistently completes homework provided from individual counseling. Pt contributes actively during group discussions, takes notes, appears to listen to others, and engages in group activities. Pt's overall DSM-5 scores have slightly decreased since admission, with depression remaining the same, but pt's anxiety has decreased by 42% since admission and pt is actively working on exposure goals. Status of Current Problems and Symptoms: Pt continues to report stressors related to finding a job, her relationship with her , and managing her OCD/ anxiety. Pt is working on her ERP goals and making progress, but pt still has compulsions she engages in and pt's health-related intrusive thoughts continue to impact her daily. Pt noted she is gaining awareness of things that keep her stuck and pt has been using a lot of opposite action. Pt wants to work on building confidence, talking more effectively with her , and setting boundaries. Pt also noted that she feels groggy at times due to her medication, but overall pt feels the medication helps. Progress Problem #1: Problem Name:: OCD and anxiety Status of Goals:: Objective 1- in progress. Pt is working on her fear ladder and has begun small exposure goals. Pt will work his way up to more anxiety producing goals. Pt reports reading the Overcoming Unwanted Intrusive Thoughts book helped significantly. Objective 2-in progress. Pt?s DSM-5 scores for anxiety have decreased by 42% since admission and pt reports doing the ERP goals and the medication have both been helpful. Pt's OCD symptoms have reduced by 13%. Team Recommendations:: Treatment team encourages pt to continue working on distress tolerance skills, repeating exposure goals, and practicing self-care to reduce stress. Problem #2: Problem Name:: Depression and negative self-talk Status of Goals:: Objective 1-in progress. Pt?s DSM-5 scores are the same since admission for depression. Pt reports benefitting from having a routine that gets pt out of the house and engaged socially. Pt will continue working on implementing healthy coping skills. Objective 2- in progress. Pt is working on practicing giving herself credit and gratitude. Team Recommendations:: Team recommends continued goals and objectives to reinforce skills and reduce symptoms. Team recommends pt continue working on combating distortions, being more self-compassionate, and practicing assertive communication with supports.
--- NOTE | 2025-05-12 09:05 | BH.SGPN.GN ---
Behaviors/Verbalizations/Mental Status: [] Eye contact is good. Motor activity is restless. Appearance is casual. Speech is Appropriate. Mood is depressed and irritable. Affect is congruent. Thoughts are linear and logical. No evidence of psychosis. Reviewed daily check in sheet and no reports of suicidal ideations or intent. Client Response/Progress/Benefit: [] Pt was an active participant in group discussions. Attentive during video on mindfulness and was able to make connections to her mental health. Tearful at times. Daily symptom tracker notes 5/5 for depression and irritability. Also reports 4/5 for anxiety. She started a new job last week and according to her this has significantly impacted her mental health. She discussed stressors and interpersonal conflicts at work which she is ruminating on extensively. Group pointed out several cognitive distortions, most prominently catastrophizing. Blaming herself for perceived failures and ?nit picking?. Fearful she is going to return to her ?old self? due to stressors. Benefited from group support, encouragement, and feedback. Regression noted. Will continue in IOP to prevent decompensation, decrease intrusive thoughts, increase healthy coping, and improve functioning. Narrative Note: []
--- NOTE | 2025-05-12 10:10 | BH.SGPN.GN ---
Behaviors/Verbalizations/Mental Status: []Pt alert and oriented, casual appearance. Eye contact good. Motor activity appropriate. Speech within normal limits. Affect congruent, mood anxious. Thoughts linear, logical, no signs of hallucinations or delusions. Client Response/Progress/Benefit: [] Pt an active participant in group discussions on defining conflict (internal/external) and possible benefits to conflict. Attentive during psychoeducation on conflict styles (avoidant, accommodating, competing, cooperative) and engaged during group discussion in which peers identified the benefits and consequences to each conflict style. Pt connected with the different conflict styles. Stated she connects most with using passive communication. Able to make connections how current style impacts mental health. Benefited from increased awareness of the impact of conflict styles in mental health. Will continue in IOP tx to continue working on fear ladder, decrease anxious avoidance, and prevent decompensation.
--- NOTE | 2025-05-12 11:10 | BH.SGPN.GN ---
Behaviors/Verbalizations/Mental Status: []Client alert and oriented, casually dressed and groomed. Eye contact fair. Motor activity appropriate. Speech within normal limits. Affect congruent, mood dysthymic and anxious. Thoughts linear, logical, no signs of hallucinations or delusions. Client Response/Progress/Benefit: [] Pt engaged in session AEB contributing to discussion and engaging in small group. Attentive during discussion on strategies for more effectively managing conflict in personal life. Pt noted current conflict resolution style uses the most is avoiding and accommodating which then leads to burnout and frustration. Pt participated in small group for activity and did well practicing how to manage conflict scenarios. Pt given handout on conflict resolution skills and shared he wants to work on ?using I-statements.? Appeared to benefit from gaining strategies to help Pt better manage conflict. Will continue IOP tx improve distress tolerance, increase self-compassion, and improve daily functioning. Narrative Note: []
--- NOTE | 2025-05-13 09:05 | BH.SGPN.GN ---
Behaviors/Verbalizations/Mental Status: [] Eye contact is good. Motor activity is appropriate. Appearance is casual. Speech is Appropriate. Mood is anxious and irritable. Affect is anxious. Thoughts are linear and logical. No evidence of psychosis. Reviewed daily check in sheet and no reports of suicidal ideations or intent. Client Response/Progress/Benefit: [] - Pt participated at times during the group discussions. Attentive. Daily symptom tracker notes /5 for depression, anxiety, and agitation. Able to identify mental health wins which included setting a boundary with her friend. ? She was stressing me out?. Insight on the benefits of boundary-setting. When asked about her emotions for today she states ? I don?t have one?. ? I?m stuck in my head today?. Progress noted. Benefited from group support, encouragement, and feedback. Will continue ?in IOP to prevent decompensation, decrease intrusive thoughts, and improve functioning. Narrative Note: []
--- NOTE | 2025-05-13 10:15 | BH.SGPN.GN ---
Behaviors/Verbalizations/Mental Status: []Eye contact is good. Motor activity is appropriate. Appearance is casual. Speech is Appropriate. Mood is anxious. Affect is congruent. Thoughts are linear and logical. No evidence of psychosis. Client Response/Progress/Benefit: [] Pt receptive to session AEB listening attentively to others and taking notes. Pt attentive and contributed throughout psychoeducation on the cognitive triangle and maintenance cycles. Pt engaged during group discussion reviewing the impact of daily activities and behaviors in either reinforcing unhealthy maintenance cycles and depression or assisting in reducing symptoms (?down? vs ?up? activities). Pt participated during interactive discussion in which pt identified their own common up activities (getting outside and being creative) and down activities (isolating and engaging in compulsions). Appeared to benefit from increased awareness of current behaviors and impact these have on mental health. Will continue IOP to increase distress tolerance, reduce compulsions, and improve daily functioning. ? Narrative Note: []
--- NOTE | 2025-05-13 14:29 | BH.MDN_ITS ---
Multi-Disciplinary Note Note 60-min Individual: Time Started:: 11:05 Date: 05/13/25 Purpose of session/treatment goals addressed:: To work on challenging negative self-talk and practice calming skills. Eye Contact:: Good Motor Activity:: Restless Appearance:: Casual Speech:: Appropriate Mood:: Anxious and Depressed Affect:: Congruent (tearful) Thoughts:: Racing, Circular and No evidence of hallucinations/delusions noted Staff Interventions:: thought challenging (negative self-talk), motivational interviewing (Discussed pt's options and what pt is willing to change), mindfulness skills (practiced 5-senses) and taught coping skills Client Response:: Pt responded well to session, open to meeting with therapist. Pt reports she is struggling and feeling overwhelmed today because work was horrible. Pt stated she worked 4 days in a row and she felt like I just went back to old habits. Pt shared she does not know what to do because she is already feeling like this job is not going to be good for her mental health. 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 Pt also feels pressure to work because of finances and her . Pt was becoming negative with herself and using numerous cognitive distortions. Pt receptive to thought challenging by therapist and pt also responded well to practicing the 5-senses as she was becoming more anxious. Pt reported that after doing a round of 5-senses, she felt much better. Pt receptive to practicing this before she goes into work and on her way home from work. Pt wants to practice this at work as well, but she feels like I just forget the coping skills and pt gained insight to why this happens. Pt gained awareness that practicing while calmer can help pt remember the skills better for when she is anxious. Risks/Concerns:: Pt denies any suicidal ideation, plan, or intent. Pt denies any thoughts of . Progress Toward Goals/Plan:: Pt continues to make progress towards her tx goals AEB pt working on her ERP goals consistently both at IOP and outside the IOP setting. Pt can identify progress in her reduction of physical symptoms, but pt admits that today she feels like all my progress is lost due to triggers with work leading to worsening irritability and anxiety. Pt will continue IOP tx to prevent decompensation, further increase distress tolerance, and improve daily functioning. Time Stopped:: 12:05
--- NOTE | 2025-05-14 09:05 | BH.SGPN.GN ---
Behaviors/Verbalizations/Mental Status: [] Eye contact is good. Motor activity is restless. Appearance is casual. Speech is Appropriate. Mood is depressed. Affect is flat. Thoughts are linear and logical. No evidence of psychosis. Reviewed daily check in sheet and no reports of suicidal ideations or intent. Client Response/Progress/Benefit: [] Pt participated at times during the group discussions. Attentive. Daily symptom tracker notes 4/5 for depression and 3/5 for anxiety/irritability. Tearful during her entire check-in. Obsessive and intrusive thoughts regarding her birthday. Verbalized several times that she is just another year closer to dying stating she only has 30 or so year left alive. Group attempted to reframing and challenge her perspective however she was dismissive. Group also provided suggestions on activities or strategies that she could implement on her birthday tomorrow to help minimize distress, however she was resistant and dismissive of suggestions. Limited progress. Continues to struggles with internal coping skills and negative thoughts. Will continue in IOP to prevent decompensation, stabilize mood, and improve functioning. Narrative Note: []
--- NOTE | 2025-05-14 10:10 | BH.SGPN.GN ---
Behaviors/Verbalizations/Mental Status: [] Eye contact is fair. Motor activity is restless. Appearance is casual. Speech is Appropriate. Mood is anxious. Affect is congruent. Thoughts are linear and logical. No evidence of psychosis. Client Response/Progress/Benefit: [] Pt engaged in session AEB listening attentively to others and providing input throughout. Pt engaged in activity, able to connect how it can be uncomfortable and difficult to practice acceptance when situations are out of one?s own control. Identified what they are struggling to accept in personal life. Worked with peer group to define acceptance and identify the benefits that acceptance can bring. Benefits included; reduce stuckness, reduced stress, helps one to focus on situations we can change, and decreased negative self-talk. Seemed to benefit from increased awareness of the meaning as well as the importance of acceptance. Will continue in IOP to continue working fear ladder, challenge distorted thoughts, and prevent decompensation.
--- NOTE | 2025-05-14 13:42 | BH.MDN ---
Multi-Disciplinary Note Note 45-min Individual: Time Started:: 11:15 Date: 05/14/25 Purpose of session/treatment goals addressed:: To work on pt's ERP goals and rehearse skills in session. Eye Contact:: Good Motor Activity:: Restless Appearance:: Casual Speech:: Tangential Mood:: Anxious Affect:: Congruent Thoughts:: Racing, Other (intrusive thoughts present) and No evidence of hallucinations/delusions noted Staff Interventions:: thought challenging (negative self-talk), mindfulness skills (reviewed 5-senses and pt reported it has been helpful.), discharge planning (scheduled an outpatient psychiatry appointment.), strengths perspective, taught coping skills (gratitude) and other (conducted ERP for 20 minutes and processed.) Client Response:: Pt responded well to session, open to meeting with therapist. Pt and therapist met yesterday and processed current stressors and today's session is meant for ERP. Pt reports she has been way less anxious about contamination, but she has been hyper-focusing on the potential of bugs being in her drinks. Last week pt was able to successfully drink from a cup that pt and therapist labeled as contaminated and pt used her OCD statements to induce anxiety. Pt shared she has been doing much better and she feels confident in continuing further with ERP. Pt receptive to working on drinking from a cup again today, but this time pt will state there is a bug in my drink. Pt used this phrase before she drank and pt reported immediately her SUDs increased to about 8/10. Pt noted that she was beginning to have tightness in her chest and her heart rate increased. This helped pt use distress tolerance skills and remind herself that anxiety is not going to kill her and also the power of thoughts. Pt was able to drink using the statement and after she was encouraged not to check the cup. Pt shared she struggled with not checking her urine and she noted she will get back to this goal this week. Pt receptive to learning the skill of gratitude to help pt give herself more credit and focus on things going well in her life instead of all the negative what ifs. Pt encouraged to do this and continue practicing the 5-senses. Risks/Concerns:: Pt denies any suicidal ideation, plan, or intent. Pt denies any thoughts of . Progress Toward Goals/Plan:: Pt continues to make progress towards tx goals AEB pt's report of using ERP at home and being able to face more things she used to avoid. Pt reports a reduction in some, not all, compulsions including reduced checking behaviors, being able to drink from open cups again, and reduced avoidance of places. Pt also noted that her thoughts are not racing like they were previously, so she is able to identify her intrusive thoughts and give them less value. Pt is in need out an outpatient therapist following IOP discharge, but pt got established with outpatient psychiatry today. Pt will continue IOP tx to promote mood stability, improve distress tolerance, and improve self-confidence. Time Stopped:: 12:00
--- NOTE | 2025-05-19 09:05 | BH.SGPN.GN ---
Behaviors/Verbalizations/Mental Status: [] Eye contact is good. Motor activity is appropriate. Appearance is casual. Speech is Appropriate. Mood is depressed and anxious. Affect is congruent. Thoughts are linear and logical. No evidence of psychosis. Reviewed daily check in sheet and no reports of suicidal ideations or intent. Client Response/Progress/Benefit: [] Pt was an active participant in group discussions. Attentive. Daily symptom tracker notes 01/26 for depression and 12/27 for anxiety. Shared with the group that she worked on exposure goals this weekend. Shared a few examples and briefly discussed how progress increases her confidence and hope. Emotion for today is depressed. Shared an event that occurred yesterday which led to feeling of being dismissed by close support. Able to reframe this as an opportunity to practice communication and crucial conversation skills. Progress noted. Benefited from group support, encouragment, and feedback. Will continue in IOP to prevent decompensation, decrease intrusive thoughts, and increase healthy coping. Narrative Note: []
--- NOTE | 2025-05-19 10:10 | BH.SGPN.GN ---
Behaviors/Verbalizations/Mental Status: []Pt alert and oriented, neatly dressed and groomed. Eye contact good. Motor activity appropriate. Speech within normal limits. Affect constricted, mood anxious. Thoughts linear, logical, no signs of hallucinations or delusions. Client Response/Progress/Benefit: [] Pt was an active participant AEB taking notes and engaging in group activity. Connected with the topic of pitfalls and listened to group discussion on barriers that prevent from choosing a healthier path to mental wellness. Group worked together to identify examples of personal pitfalls. These examples included; shutting down, not asking for help, negative thinking patterns, avoidance, and isolation. Pt benefited from group as Pt learned to better identify potential barriers to improving mental health symptoms. Identified personal barrier of giving into compulsions and perfectionism. Pt will continue IOP tx to increase distress tolerance, improve daily functioning, and reduce compulsions. Narrative Note: []
--- NOTE | 2025-05-19 13:24 | BH.MDN_ITS ---
Multi-Disciplinary Note Note 45-min Individual: Time Started:: 11:30 Date: 05/19/25 Purpose of session/treatment goals addressed:: To work on distress tolerance skills and goal #2 of pt's tx plan. Eye Contact:: Good Motor Activity:: Appropriate Appearance:: Casual Speech:: Appropriate Mood:: Euthymic and Anxious Affect:: Congruent Thoughts:: Linear, Logical and No evidence of hallucinations/delusions noted Staff Interventions:: thought challenging, CBT techniques, mindfulness skills, discharge planning, strengths perspective (reviewed progress and identified areas of resilience.) and other (interpersonal effectiveness skills and role playing these skills. ) Client Response:: Pt responded well to session, open to meeting with therapist. Pt reports she has been doing better and this weekend she did a lot of exposures. Pt stated she challenged herself to get out of the house more, she texted two people to clarify things, and she got rid of the plants that instead of ruminating over them. Pt was reflecting on her growth and noted that she does not engage in one of her big compulsions anymore which was scanning and memorizing rooms. Pt became tearful while nothing this progress and how far she has come. Pt shared she is still checking the color of her pee and analyzing it, but pt feels she is not ruminating over it as much. Pt shared work went much better last week and she was with someone who encouraged pt to set boundaries at work which gave pt some relief and confidence. Pt reported she and her continue to have tension at home and pt wants to work on this. Pt noted that she is often irritable when he does not help with things and this leads to them not speaking or shutting down. Pt admitted that she does not ask her to help with things, because I shouldn't have to, he should know. Pt responded well to gentle thought challenging and looking at this from a different perspective. Pt gained insight that not everyone has the same priorities or notices the same things at home, therefore, it is important to communicate. Pt receptive to coming up with a list of tasks and then talking to her about splitting these up so pt and her have less tension at home. Risks/Concerns:: Pt denies any suicidal ideation, plan, or intent. Pt denies any thoughts of . Progress Toward Goals/Plan:: Pt continues to do well with her tx goals and pt reports a reduction in compulsions. Pt became tearful in session today because she was so happy to have a reduction and see her progress. Pt's relationship and home life is currently her biggest stressor, so pt was receptive to working on this for homework. Pt continues to engage in health- anxiety related compulsions, but much less than before. Pt will continue IOP tx to promote use of healthy coping skills, improve daily functioning, and increase distress tolerance. Time Stopped:: 12:10
--- NOTE | 2025-05-20 09:05 | BH.SGPN.GN ---
Behaviors/Verbalizations/Mental Status: [] Eye contact is good. Motor activity is appropriate. Appearance is casual. Speech is Appropriate. Mood is depressed and anxious. Affect is congruent. Thoughts are linear and logical. No evidence of psychosis. Reviewed daily check in sheet and no reports of suicidal ideations or intent. Client Response/Progress/Benefit: [] Pt was an active participant in group discussions. Attentive. Daily symptom tracker notes /5 for depression and 3/5 for anxiety/agitation. Able to identify mental health wins and healthy habits. States that she feels ?relaxed? today. Was able to follow through with a goal to have a conversation with her regarding sharing responsibilities. [place] overwhelmed with setting unrealistic expectations on herself to complete household tasks. was receptive. Believes this will impact her mental health in many areas including more time for self-care. Progress noted. Benefited from group support, encouragement, and feedback. Will continue in IOP to prevent decompensation, decrease intrusive thoughts, and increase healthy coping. Narrative Note: []
--- NOTE | 2025-05-20 10:10 | BH.SGPN.GN ---
Behaviors/Verbalizations/Mental Status: [] Pt alert and oriented, casually dressed and groomed. Eye contact good. Motor activity appropriate. Speech within normal limits. Affect congruent. mood dysthymic. Thoughts linear, logical, no signs of hallucinations or delusions. Client Response/Progress/Benefit: [] Pt was an engaged participant AEB listening attentively to others, taking notes, and providing feedback in group discussions. Attentive during psychoeducation AEB by note taking. Pt worked along with peers in groups to define inappropriate guilt and appropriate guilt. Group worked together to provide examples of both inappropriate and appropriate guilt. Group identified a lashing out and breaking something as appropriate guilt examples. Group identified setting a boundary and needing help as having inappropriate guilt about. Pt able to connect impact inappropriate guilt can have on MH and overall functioning. Noted that it has led to reassurance seeking and going back on boundaries. Benefited from increased awareness of guilt and the differences between appropriate and inappropriate guilt. Pt to continue IOP tx to prevent decompensation, gain healthy coping skills, and increase communication skills. Narrative Note: []
--- NOTE | 2025-05-20 10:10 | BH.SGPN.GN ---
Behaviors/Verbalizations/Mental Status: [] Pt alert and oriented, casually dressed and groomed. Eye contact good. Motor activity appropriate. Speech within normal limits. Affect congruent, mood anxious and dysthymic. Thoughts linear, logical, no signs of hallucinations or delusions. Client Response/Progress/Benefit: [] Pt participated in group discussions. Attentive during psychoeducation on the CBT [place] (Thoughts, Behaviors, Emotions). Engaged in group discussion on how thoughts and behaviors can contribute to maintaining adverse feelings, such as depression, anxiety, and irritability. Completed worksheet in which pt identified obstacles and/or thoughts that are keeping them stuck. Shared obstacles that included; negative self-talk,compulsions, and catastrophizing. Pt benefited from increased awareness of the basis of CBT therapy as well as specific thoughts that are impacting pt's progress. Will continue in IOP to prevent decompensation, increase healthy coping, and improve functioning. Narrative Note: []
--- NOTE | 2025-05-20 11:10 | BH.SGPN.GN ---
Behaviors/Verbalizations/Mental Status: []Eye contact is good. Motor activity is appropriate. Appearance is casual. Speech is Appropriate. Mood is engaged. Affect is congruent. Thoughts are linear and logical. No evidence of psychosis. Client Response/Progress/Benefit: [] Pt was an engaged participant AEB listening attentively to others and providing input throughout group. Pt along with group members, identified strategies to manage inappropriate guilt. Identified a personal example of inappropriate guilt as ?feeling guilty when I have to cancel something even if I can?t help it.? Pt wants to work on combatting inappropriate guilt by stopping myself from feeling bad when I shouldn?t.? Pt seemed to benefit from learning about strategies to manage appropriate and inappropriate guilt. Pt to continue IOP tx to promote use of healthy coping skills, increase distress tolerance, and improve self-confidence. Narrative Note: []
== END 2025-05-24 23:59 ==
LOC: BHIOP 07:51
PROVIDERS: Referring Provider Student in an Organized Health Care Education/Training Program; Visit Provider Student in an Organized Health Care Education/Training Program
DX: F42.9 Obsessive-compulsive disorder, unspecified (principal); F43.10 Post-traumatic stress disorder, unspecified; F41.9 Anxiety disorder, unspecified
CPT/HCPCS: H2012; H2020; S9480; 90834; 90837; 90847

== ENCOUNTER 2025-05-26 07:14 | Outpatient (RCR) | payer MEDICAID, SELFPAY ==
--- NOTE | 2025-05-26 09:05 | BH.SGPN.GN ---
Behaviors/Verbalizations/Mental Status: [] Eye contact is good. Motor activity is appropriate. Appearance is casual. Speech is Appropriate. Mood is depression and anxiety. Affect is congruent. Thoughts are linear and logical. No evidence of psychosis. Reviewed daily check in sheet and no reports of suicidal ideations or intent. Client Response/Progress/Benefit: [] Pt was an active participant in group discussions. Attentive. Daily symptom tracker notes /5 for depression, anxiety, and irritability. She continues to report ? working on exposure goals? and seeing progress. Overall decrease in panic attacks and intrusive thoughts. She described significant health anxiety at work and described skills she used to ?pop those thoughts outside of my head? and continue working. In the past the event and health anxiety would have impacted her for several days. Current stressor related to conflict with with increased arguments. Progress noted. Benefited from group support, encouragement, and feedback. Will continue in IOP to prevent decompensation, decrease intrusive thoughts, and increase healthy coping Narrative Note: []
--- NOTE | 2025-05-26 10:10 | BH.SGPN.GN ---
Behaviors/Verbalizations/Mental Status: [] Eye contact is fair. Motor activity is appropriate. Appearance is casual. Speech is Appropriate. Mood is anxious. Affect is congruent. Thoughts are linear and logical. No evidence of psychosis. Client Response/Progress/Benefit: [] Pt was an active participant during interactive group discussions. Attentive during psychoeducation on the six types of boundaries (physical, emotional, intellectual, sexual, time, and material) AEB note-taking and providing input. Along with peers contributed to interactive discussion on defining what a boundary is in mental health. Pt along with peers identified challenges to setting boundaries such as guilt, feeling selfish, negative past experiences, fear of conflict, and limited knowledge on setting boundaries. Pt along with peers identified the benefits to setting boundaries such as better relationships, increased time for self-care, and increased confidence, and feeling more heard. Group discussed the mental health benefits to establishing boundaries at work, school, and home. Pt benefited from increased awareness and insight on the importance/benefit to setting health boundaries. Will continue in IOP to continue working on fear ladder, challenge negative/distorted thoughts, and prevent decompensation.
--- NOTE | 2025-05-26 11:10 | BH.SGPN.GN ---
Behaviors/Verbalizations/Mental Status: []Pt alert and oriented, casually dressed and groomed. Eye contact good. Motor activity appropriate. Speech within normal limits. Affect congruent, mood anxious and dysthymic. Thoughts linear, logical, no signs of hallucinations or delusions. Client Response/Progress/Benefit: [] Client responded well to session AEB listening attentively to peers, providing input, as well as taking notes throughout. Group discussed different styles of boundary setting. Participated in small group discussion brainstorming various strategies for improving healthy boundary setting. Pt took time to complete reflection on which skills would like to implement to improve boundaries. Plans to challenge self by continuing to learn more about healthy boundary setting. Seemed to benefit from increased awareness of how different boundary styles can impact mental health. Will continue IOP tx prevent decompensation, increase use of healthy coping skills, and reduce negative thinking patterns. Narrative Note: []
--- NOTE | 2025-05-27 09:05 | BH.SGPN.GN ---
Behaviors/Verbalizations/Mental Status: [] Eye contact is good. Motor activity is appropriate. Appearance is casual. Speech is Appropriate. Mood is anxiety and depression. Affect is congurent. Thoughts are linear and logical. No evidence of psychosis. Reviewed daily check in sheet and no reports of suicidal ideations or intent. Client Response/Progress/Benefit: [] Pt was an active participant in group discussions. Attentive. Daily symptom tracker notes 4/5 for depression and anxiety. Pt reports that she is ?Stressing? about next week. Tearful. She is set to discharge from IOP stating ? I?ll be alone after discharge?. Therapist attempted to reframe and challenge this thought which she responded well. Reframed and pointed out progress. Progress noted. Benefited from group support, encouragement, and feedback. Will continue in [facility] to prevent decompensation, decrease intrusive thoughts, and increase healthy coping. Narrative Note: []
--- NOTE | 2025-05-27 11:10 | BH.SGPN.GN ---
Behaviors/Verbalizations/Mental Status: [] client alert and oriented, casually dressed and groomed. Eye contact fair. Motor activity appropriate. Speech within normal limits. Affect constricted, mood anxious. Thoughts linear, logical, no signs of hallucinations or delusions. Client Response/Progress/Benefit: [] Client was an engaged participant throughout group AEB client providing input throughout discussion. Client contributed to the continued discussion of how people express anger as well as the underlying emotions of anger. Client participated in group activity that highlighted strategies to cope with anger. Group brainstormed healthy coping skills to help prevent anger and cope with it in the moment which included: mindfulness, deep breathing, journaling, going outside, and music. Client appeared to benefit from brainstorming with the group potential strategies to manage anger in healthy ways. Recommended continued IOP to decrease anxious avoidance, challenge distorted thoughts, and prevent decompensation.
--- NOTE | 2025-05-29 07:44 | PCM.BH.PN_ITS ---
Intake Vital Signs 04/23/25 12:14 Height 5 ft 3 in Intake Allergies metoclopramide (From Reglan) Allergy (Severe, Verified 04/10/25 09:00) NEEDS FOLLOW-UP lisinopril Allergy (Intermediate, Verified 04/10/25 09:00) COUGH Medications ?Medication ?Instructions ?Recorded ?Confirmed ?Type albuterol sulfate 90 mcg/actuation 2 puff inhalation Q 4H PRN PRN 10/15/24 04/10/25 Rx aerosol inhaler (Ventolin HFA) Wheezing ##1 gabapentin 300 mg capsule 300 mg PO BID 11/10/2405/01 History losartan 100 mg tablet 100 mg PO DAILY 11/10/2405/18 History potassium chloride 10 mEq 10 meq PO BID 11/10/2405/01 History tablet,extended release topiramate 25 mg tablet 75 mg PO QHS 11/10/24 History cholecalciferol (vitamin D3) 125 125 mcg PO DAILY 05/1805/01/25 History mcg (5,000 unit) tablet (Vitamin D3) ferrous sulfate 325 mg (65 mg 325 mg PO DAILY 05/01/25 05/01/25 History iron) tablet magnesium 250 mg tablet 250 mg PO QHS 05/01/2505/01 History melatonin 5 mg capsule 5 mg PO QHS 05/01/25 5 History pantoprazole 40 mg tablet,delayed 40 mg PO DAILY 05/0105/01/25 History release aripiprazole 5 mg tablet (Abilify) 5 mg PO QHS 30 days #30 tabs 05/19/25 Rx HPI () Developmental History Developmental History: KETTY is the [ ORDER]. The pt was born and raised in [ ]. Education level completed [ ]. Pt describes his/her childhood as [ ]. Visit Details Comments: Spent a total of [ ] minutes on the date of the service which included [ ].
--- NOTE | 2025-05-29 07:44 | PCM.BH.PN ---
Intake Vital Signs 04/23/25 12:14 Height 5 ft 3 in Intake Allergies metoclopramide (From Reglan) Allergy (Severe, Verified 04/10/25 09:00) NEEDS FOLLOW-UP lisinopril Allergy (Intermediate, Verified 04/10/25 09:00) COUGH Medications ?Medication ?Instructions ?Recorded ?Confirmed ?Type albuterol sulfate 90 mcg/actuation 2 puff inhalation Q4H PRN PRN 10/15/24 04/10/25 Rx aerosol inhaler (Ventolin HFA) Wheezing ##1 gabapentin 300 mg capsule 300 mg PO BID 11/10/24 05/01/25 History losartan 100 mg tablet 100 mg PO DAILY 11/10/24 05/01/25 History potassium chloride 10 mEq 10 meq PO BID 11/10/24 05/01/25 History tablet,extended release topiramate 25 mg tablet 75 mg PO QHS 11/10/24 05/01/25 History cholecalciferol (vitamin D3) 125 125 mcg PO DAILY 05/01/25 05/01/25 History mcg (5,000 unit) tablet (Vitamin D3) ferrous sulfate 325 mg (65 mg 325 mg PO DAILY 05/01/25 05/01/25 History iron) tablet magnesium 250 mg tablet 250 mg PO QHS 05/01/25 05/01/25 History melatonin 5 mg capsule 5 mg PO QHS 05/01/25 05/01/25 History pantoprazole 40 mg tablet,delayed 40 mg PO DAILY 05/01/25 05/01/25 History release aripiprazole 5 mg tablet (Abilify) 5 mg PO QHS 30 days #30 tabs 05/19/25 Rx HPI () Developmental History Developmental History: KETTY is the [ ORDER]. The pt was born and raised in [ ]. Education level completed [ ]. Pt describes his/her childhood as [ ]. Visit Details Comments: Spent a total of [ ] minutes on the date of the service which included [ ].
--- NOTE | 2025-05-29 09:05 | BH.SGPN.GN ---
Behaviors/Verbalizations/Mental Status: [] Eye contact is fair. Motor activity is restless. Appearance is casual. Speech is Appropriate. Mood is depressed. Affect is congruent. Thoughts are linear and logical. No evidence of psychosis. Reviewed daily check in sheet and no reports of suicidal ideations or intent. Client Response/Progress/Benefit: [] Pt participated at times. Distracted today. Daily symptom tracker notes 4/5 for anxiety/agitation as well as 3/5 for depression. She declined to share stating ? I?m too distracted to be comfortable.?. No progress noted. Limited benefit from group aside from support. Will continue in IOP to prevent decompensation, decrease intrusive thoughts, and increase healthy coping Narrative Note: []
--- NOTE | 2025-05-29 11:10 | BH.SGPN.GN ---
Behaviors/Verbalizations/Mental Status: [] Eye contact is good. Motor activity is appropriate. Appearance is casual. Speech is Appropriate. Mood is euthymic. Affect is congruent. Thoughts are linear and logical. No evidence of psychosis. Client Response/Progress/Benefit: [] Pt was an active participant and responded well to session AEB input and examples during group activity. Group discussed and practiced methods of reframing cognitive distortions. Client participated in identifying cognitive distortions when examples were provided. Client discussed in group the different strategies to overcome the distortions. Client identified cognitive distortion they used most often and made plan to identify and challenge thoughts that contribute to it as homework over the next couple of days. Will continue tx to further promote mood stability, improve distress tolerance skill application, maintain safety, and prevent decompensation. Narrative Note: []
--- NOTE | 2025-05-29 14:25 | BH.MDN ---
Multi-Disciplinary Note Note 30-min Individual: Time Started:: 10:24 Date: 05/29/25 Purpose of session/treatment goals addressed:: Purpose of session is to review progress, address any current stressors, and complete discharge planning. Eye Contact:: Good Motor Activity:: Appropriate Appearance:: Casual Speech:: Appropriate Mood:: Euthymic and Anxious Affect:: Congruent Thoughts:: Linear, Logical and No evidence of hallucinations/delusions noted Staff Interventions:: motivational interviewing, CBT techniques, discharge planning and strengths perspective Client Response:: Pt responded well to session, open to meeting with therapist as pt?s usual therapist is out of the office. Pt reports she continues to see improvements in her mental health and ability to manage her OCD sx. Discussed currently sitting with the uncomfortable in regards to recent triggers for her health anxiety. Shared reminding herself not to feed into ?what if? thoughts and instead continue doing what she was previously doing. Went on to describe improvements in her ability to set boundaries and discuss uncomfortable topics with her and is reaching out more to supports. Shared that she has not gone to anyone else?s house yet, but it is a goal of hers. Pt does continue to struggle with sleep and noted speaking with the program psychiatrist about this. Expressed plans to try and sleep in tomorrow as she has been getting up at 4:30am recently. Went on to indicate needing to be connected with outpatient counseling prior to d/c next week, noting a desire to find an OCD specific therapist. Receptive of calling [facility] in session to establish care. Risks/Concerns:: Pt denies any suicidal ideation, plan, or intent. Pt denies any thoughts of . Progress Toward Goals/Plan:: Pt continues to make progress and is doing well to identify areas in which she continues to to see improvements. Pt indicates improved confidence, thought challenging, ability to sit with the uncomfortable, and reduction in OCD compulsions. Pt continues to engage in health-anxiety related compulsions, but notes she is actively practicing resisting these compulsions. Pt was able to connect with outpatient providers to establish aftercare as well. Pt will d/c next week and will remain in the IOP program for 2 more sessions to prevent decompensation and complete d/c and maintenance planning. Time Stopped:: 10:54
--- NOTE | 2025-06-02 09:00 | BH.SGPN.GN ---
Behaviors/Verbalizations/Mental Status: [] Pt alert and oriented, neatly dressed and groomed. Eye contact good. Motor activity appropriate. Speech within normal limits. Affect congruent, mood euthymic and proud. Thoughts linear, logical, no signs of hallucinations or delusions. Reviewed pt?s symptom tracker, no risk for suicidal ideation, plan, or intent 06/03/25. Client Response/Progress/Benefit: []Pt was an active participant in group discussions. Attentive. Able to identify mental health wins including ?I?m just so much better than I was and I?m using so many skills.? Pt reflected on how she has progressed with reducing anxiety and improved functioning. Pt shared ?I can actually hold a conversation with people and read my own handwriting.? Pt's stressor today is ?I don?t think I have any.? The group offered pt suggests managing this stressor and emotional support which pt reported was helpful. Pt is feeling ?at peace? this morning. Pt receptive to feedback from peers. Benefited from group support, encouragement, and feedback. Progress noted. Will continue IOP tx to reinforce healthy coping skills and establish aftercare. Narrative Note: []
--- NOTE | 2025-06-02 10:15 | BH.SGPN.GN ---
Behaviors/Verbalizations/Mental Status: [] Eye contact is good. Motor activity is appropriate. Appearance is casual. Speech is Appropriate. Mood is anxious. Affect is congruent. Thoughts are linear and logical. No evidence of psychosis. Client Response/Progress/Benefit: [] Pt engaged in session AEB client listening attentively to peers and providing input. Attentive and contributed to discussion as group worked on defining?self-confidence?and identifying benefits of?self-confidence which included; increase brian/engagement, improved quality of relationships, improved problem solving, confidence to take risks, and increased sense of self-worth. Also participated during interactive discussion on factors that impact one's self confidence such as trauma, upbringing, economic status, and current/past relationships. Benefited from increased education on?self-confidence?and what effects it. Pt will continue IOP tx prevent decompensation, decrease intrusive thoughts, increase healthy coping, and improve functioning. Narrative Note: []
--- NOTE | 2025-06-02 11:10 | BH.SGPN.GN ---
Behaviors/Verbalizations/Mental Status: [] Client alert and oriented, casually dressed and groomed. Eye contact good. Motor activity appropriate. Speech within normal limits. Affect congruent, mood anxious. Thoughts linear, logical, no signs of hallucinations or delusions. Client Response/Progress/Benefit: [] Pt engaged in session AEB client listening attentively to peers and providing input. Attentive and contributed to discussion as group worked on identifying thought patterns and behaviors that negatively affect self-confidence. Pt identified behaviors that affect their confidence as: lack of assertive communication and negative self-talk. Engaged in confidence building activity and worked with the group to identify strategies for improving self-confidence. Pt identified plans to continue advocating for self as a means of improving own self-confidence. Benefited from increased education on self-confidence building skills. Pt will continue IOP tx to increase self-confidence, improve emotional regulation skills, and prevent decompensation. Narrative Note: []
--- NOTE | 2025-06-02 14:48 | BH.AFTERPLAN ---
Aftercare Plan Demographics Treatment End Date:: 06/03/25 Psychiatrist:: Paul Thurman Psychiatrist Office #:: [phone] [facility]/IOP Therapist:: Bailey Fritz Therapist Phone #:: [phone] Medications Home Medications albuterol sulfate 90 mcg/actuation aerosol inhaler (Ventolin HFA) 2 puff inhalation Q4H PRN PRN Wheezing ##1 10/15/24 gabapentin 300 mg capsule 300 mg PO BID 11/10/24 losartan 100 mg tablet 100 mg PO DAILY 11/10/24 potassium chloride 10 mEq tablet,extended release 10 meq PO BID 11/10/24 topiramate 25 mg tablet 75 mg PO QHS 11/10/24 cholecalciferol (vitamin D3) 125 mcg (5,000 unit) tablet (Vitamin D3) 125 mcg PO DAILY 05/01/25 ferrous sulfate 325 mg (65 mg iron) tablet 325 mg PO DAILY 05/01/25 magnesium 250 mg tablet 250 mg PO QHS 05/01/25 melatonin 5 mg capsule 5 mg PO QHS 05/01/25 pantoprazole 40 mg tablet,delayed release 40 mg PO DAILY 05/01/25 aripiprazole 5 mg tablet (Abilify) 5 mg PO QHS 30 days #30 tabs 05/19/25 Plan Details Progress/Aftercare Plan Details:: Haven has responded well to treatment as evidenced by Haven consistently attending IOP sessions and her reduction of DSM-5 scores since admission. Haven was always attentive and receptive to learning during group and individual sessions. Haven applied coping skills outside of IOP consistently, reports overall her mood is improved, and she is functioning better than she was several months ago. Haven?s overall symptom reduction is 66% since admission with anger decreasing by 67%, depression decreasing by 75%, OCD decreasing by 63%, and anxiety decreasing by 50%. Haven has increased self-confidence in her ability to face OCD triggers and pt has significantly decreased her compulsions. Haven has also improved her ability to set boundaries, practice self-compassion, and communicate. Haven will follow up with Dr. Thurman at [facility] and Perla at [facility] for individual counseling. Strategies for Success:: 1. Opposite action! Continue to break that cycle of anxiety and depression by not letting emotions be the only drivers of your bus. Remember you do have the power to get off on a new exit. 2. Remember that thoughts are thoughts NOT facts! You have power in if you give thoughts the time of day or not. You don't have to give ELVIN any value3. self-care! You deserve to take time for you and you also deserve to face the not so fun self-care like sitting with the uncomfortable 4. Self-compassion! You are human and you will make a mistake?BUT that doesn?t mean you are a failure or not good enough. Give yourself credit for all the wonderful things you do. 5. continue working on your fear ladder! You have done so well with it. 6. Practice positive self-talk and keep track of your wins. 7. Remember progress isn?t linear! You may have a setback or bump in the road, but that doesn?t mean you?ve lost all progress. 8. self-reflection and self-awareness. 9. Delay, Distract, Decide 10. Live in the hunt!! Appointments Appointments/Referrals to Other Services:: 1. Dr. Thurman 07/09/25. 2. Perla at [facility]. 3. IOP aftercare starting 06/11/25 from 2-3:30pm.
--- NOTE | 2025-06-03 09:00 | BH.SGPN.GN ---
Behaviors/Verbalizations/Mental Status: [] Eye contact is good. Motor activity is appropriate. Appearance is casual. Speech is Appropriate. Mood is content. Affect is congruent. Thoughts are linear and logical. No evidence of psychosis. Reviewed daily check in sheet and pt reports o/5 for suicidal thoughts and o/5 for intent. Client Response/Progress/Benefit: [] Pt participated when prompted. Attentive. Emotion for today is excited. Pt's last day in [facility] tx. Mental health wins reported to be using reframing and thought challenging skills to manage anxiety on a more consistent basis. Additional win noted as continuing to make progress in allowing herself to do things outside of her comfort zone, such as visit friends in their home. Current stressor noted as adjusting to not coming to group each week. Progress noted per pt report. Benefited from group support, encouragement, and feedback. Will continue in outpatient tx to prevent decompensation and maintain mood stability. Narrative Note: []
--- NOTE | 2025-06-03 10:10 | BH.SGPN.GN ---
Behaviors/Verbalizations/Mental Status: []Pt alert and oriented, casually dressed and groomed. Eye contact good. Motor activity appropriate. Speech within normal limits. Affect congruent, mood anxious. Thoughts linear, logical, no signs of hallucinations or delusions. Client Response/Progress/Benefit: []Pt was an active participant in group discussion and activity. Attentive during psychoeducation. Along with peers, pt was able to identify barriers to taking action in their life. Identified several symptoms and stressors that pt feels are holding them back from progress. Pt stated her anxiety holds her back from taking action. Pt able to identify how these things have negatively impacted progress. Benefited from increased self-awareness of obstacles. Pt will continue IOP to continue working on anxiety fear ladder, improve healthy coping, and prevent decompensation.
--- NOTE | 2025-06-03 11:10 | BH.SGPN.GN ---
Behaviors/Verbalizations/Mental Status: []Pt alert and oriented, neatly dressed and groomed. Eye contact good. Motor activity appropriate. Speech within normal limits. Affect congruent, mood euthymic. Thoughts linear, logical, no signs of hallucinations or delusions. Client Response/Progress/Benefit: [] Pt responded well to session, taking notes and participating in worksheet discussion. Pt connected with the discussion on action steps, and this helped pt learn how to set goals differently. Pt set a SMART goal that pt will ?saying no to small things that I don?t really want to do.? Pt shared talking through her worries and using coping skills like breathing will help pt set these boundaries. Appeared to benefit from identifying a small goal to benefit mental health. Pt will discharge from IOP as pt has accomplished her tx goals and no longer meets criteria for IOP level of care. Narrative Note: []
--- NOTE | 2025-06-03 15:00 | BH.DS_ITS ---
Discharge Summary Demographics Date of Admission:: 04/08/25 Discharge Date: 06/03/25 Presenting Problems at Admission:: Pt is a 49-year-old female with a history of C-PTSD, OCD, and MDD. Pt was referred to [facility] by [facility] due to pt experiencing significant anxiety and depression. Pt reports her OCD has been life-long, but it has become debilitating over the past 8 months. Psychosocial stressors impacting this decompensation include leaving one toxic environment for another, having surgery on her hang which hindered pt's ability to engage in compulsions, and work stress. Pt currently endorses a depressed mood with panic attacks multiple times a day. Pt reports obsessions about contamination, getting ill/having an illness, harm OCD, and order. Pt reports her compulsions take all day and they cause significant distress. Pt reports engaging in her compulsions is impacting her relationship with her and has caused issues with healing from surgery. Pt reports she is terrified to , but she is feeling extremely overwhelmed and helpless. Pt reports racing thoughts, irritability, and avoidance that impacts her daily functioning. Discharge Diagnoses:: OCD F42; PTSD Reason for Discharge:: Pt has accomplished her tx goals AEB her self-report of improved functioning, reduced DSM-5 scores, and improved mood overall. Pt no longer meets criteria for [facility] level of care and will continue with outpatient counseling and IOP aftercare. Treatment Progress During Treatment & Response: Pt has responded well to treatment as evidenced by Pt consistently attending IOP sessions and her reduction of DSM-5 scores since admission. Pt was always attentive and receptive to learning during group and individual sessions. Pt applied coping skills outside of IOP consist ently, reports overall her mood is improved, and she is functioning better than she was several months ago. Pt?s overall symptom reduction is 66% since admission with anger decreasing by 67%, depression decreasing by 75%, OCD decreasing by 63%, and anxiety decreasing by 50%. Pt has increased self- confidence in her ability to face OCD triggers and pt has significantly decreased her compulsions. Pt has also improved her ability to set boundaries, practice self-compassion, and communicate. Pt will follow up with Dr. Thurman at [facility] and Perla at [facility] for individual counseling. Issues Still to be Addressed:: Managing gains and continuing ERP to manage OCD, increasing self-confidence, setting boundaries, PTSD, and increasing support. Discharge Recommendations/Instructions:: Pt will follow up with Dr. Thurman for medication management through [facility]. Pt will see Dr. Thurman on 07/09/25. Pt will follow up with Perla at [facility] for individual therapy and pt is waiting for a call back to schedule an intake assessment. Pt will begin IOP aftercare group tomorrow, 06/04/25 for weekly group for 8 weeks. Discharge Handout
--- NOTE | 2025-06-03 15:30 | BH.MDN_ITS ---
Multi-Disciplinary Note Note 45-min Individual: Time Started:: 08:30 Date: 06/03/25 Purpose of session/treatment goals addressed:: To address current stressors and discuss strategies to help cope with these stressors. Another goal was discussing discharge. Eye Contact:: Good Motor Activity:: Appropriate Appearance:: Neat Speech:: Appropriate Mood:: Euthymic Affect:: Full Thoughts:: Linear, Logical and No evidence of hallucinations/delusions noted Staff Interventions:: discharge planning, strengths perspective, reviewed DSM-5 and other (reviewed skills for maintenance.) Client Response:: Pt responded well to session, open to meeting with therapist. Pt's last day of IOP and she reflected on the progress she has made while being in the program. Pt and therapist reviewed pt's DSM-5 scores and pt expressed feeling proud of herself. Pt noted that she no longer feels that Jose pt's OCD thoughts, controls her life. Pt noted she only cleans the bathroom twice a week now, which used to be a twice a day thing. Pt also has been able to visit with friends, walk away from messes, and not overwhelm herself with tasks. Pt shared doing things is no longer a chore, I can walk away from something and not force myself to finish it. Pt has also gained skills in communication and conflict which helps pt and her interact better. Pt and therapist spent time reviewing pt's IOP binder and highlighting topics that pt can return to when she needs extra support or reminded of a coping skill. Pt will begin IOP aftercare tomorrow and she plans to start seeing an outpatient therapist soon. Pt also noted that her physical appearance has c hanged as her mental health has improved. Pt is wearing makeup again, doing her hair, and wearing her wedding ring. Pt will discharge from IOP today. Risks/Concerns:: Pt denies any suicidal ideation, plan, or intent. Pt denies any thoughts of . Progress Toward Goals/Plan:: Pt has responded well to treatment as evidenced by Pt consistently attending IOP sessions and her reduction of DSM-5 scores since admission. Pt was always attentive and receptive to learning during group and individual sessions. Pt applied coping skills outside of IOP consistently, reports overall her mood is improved, and she is functioning better than she was several months ago. Pt?s overall symptom reduction is 66% since admission with anger decreasing by 67%, depression decreasing by 75%, OCD decreasing by 63%, and anxiety decreasing by 50%. Pt will discharge from IOP tx today. Time Stopped:: 09:15
== END 2025-06-03 13:11 | disposition home or self-care (01) ==
LOC: BHIOP 07:14
PROVIDERS: Referring Provider Student in an Organized Health Care Education/Training Program; Visit Provider Student in an Organized Health Care Education/Training Program
DX: F42.9 Obsessive-compulsive disorder, unspecified (principal); F43.10 Post-traumatic stress disorder, unspecified
CPT/HCPCS: H2012; H2020; S9480; 90832; 90834

== ENCOUNTER 2025-06-04 13:00 | Outpatient (RCR) | payer MEDICAID, SELFPAY ==
--- NOTE | 2025-05-27 10:10 | BH.SGPN.GN ---
Behaviors/Verbalizations/Mental Status: [] Client alert and oriented, casually dressed and groomed. Eye contact good. Motor activity appropriate. Speech within normal limits. Affect congruent, mood content. Thoughts linear, logical, no signs of hallucinations or delusions. Client Response/Progress/Benefit: [] Client responded well to session AEB contributing to discussion, taking notes, and listening attentively to others. Group discussed the benefits of managed anger and anger as a secondary emotion. Client participated in anger iceberg discussion. Group reported outward personal signs of anger as lashing out verbally, physical fights, destruction of property, self-harm, and self-sabotage. Group Identified underlying emotions that contribute to anger including being dismissed, rejection, assumptions, being lied too, and micromanaging. Appeared to benefit from increased knowledge of the underlying emotions that impact anger and increased self-awareness of the internal and external consequences of anger. Client will continue IOP program to stabilize mood, reduce maladaptive coping/reassurance seeking, and prevent decompensation. Narrative Note: []
--- NOTE | 2025-06-04 13:40 | BH.COMM ---
Communication Note Communication with Client Communication Note: Patient completed IOP and presents today to start relapse prevention group which meets once weekly (1.5 hours) for 8 weeks. Case discussed with Dr. Strong with plan to admit with dx of F42
--- NOTE | 2025-06-04 14:00 | BH.SGPN.GN ---
Behaviors/Verbalizations/Mental Status: []Pt alert and oriented, casually dressed and groomed. Eye contact good. Motor activity appropriate. Speech within normal limits. Affect congruent, mood euthymic and anxious. Thoughts linear, logical, no signs of hallucinations or delusions. Client Response/Progress/Benefit: [] Pt receptive of session, engaged throughout. Pt shared they scheduled their sessions with outpatient providers, but she just discharged from [facility] yesterday and has not yet met with them. Pt has been taking medications consistently and reports utilizing healthy coping skills outside of aftercare. These skills included: reframing thoughts, goal setting, opposite action, deep breathing, and giving herself credit. ?Receptive of discussion on sitting with the uncomfortable and emotional urges. Pt contributed to the discussion of distress tolerance and how building distress tolerance can help improve mood stability and resilience. Pt wants to keep building distress tolerance by making more of an effort to ?be with my stupid cat.? Pt seemed to benefit from support from peers and increasing understanding of distress tolerance. Will continue aftercare to reinforce healthy coping skills and improve daily functioning. Narrative Note: []
--- NOTE | 2025-06-04 15:30 | BH.MTP ---
Master Treatment Plan Patient Information Program Physician:: Dr. Susanne Strong Primary Therapist:: Bailey DE ANDA Psychiatric Diagnoses Psychiatric Diagnoses:: OCD F 42; PTSD Diagnosis Code(s):: F 42 Estimated LOS Estimated LOS (in weeks):: 8 Problem/Goal #1 Problem/Goal #1 Stated Goal:: client will maintain or see a reduction in symptoms AEB client score on the DSM 5 cross-cutting measure and improve client's daily functioning. Objectives Objective #1: Stated Objective: Client will continue to consistently apply healthy coping skills to maintain progress made in IOP tx. Interventions: Through group therapy, client will review warning signs and triggers as well as healthy coping skills learned in IOP tx to successfully maintain gains while transitioning into outpatient therapy. Discharge Criteria: Client will have accomplished this goal when client's score on the DSM-5 cross-cutting measure has maintained or reduced over a 8 week period. Target Date: 07/30/25 Review Date: 07/02/25 Status: open Objective #2: Stated Objective: Client will learn and utilize 2-3 maintenance strategies to prevent decompensation from original IOP DSM-5 scores. Interventions: Through group therapy, client will be provided with education on healthy maintenance behaviors, relapse prevention techniques, and healthy coping strategies. Discharge Criteria: Client will have accomplished this goal when can report using at least 2 maintenance skills to prevent decompensation compared to original IOP DSM-5 scores Target Date: 07/30/25 Review Date: 07/09/25 Status: open
--- NOTE | 2025-06-11 14:00 | BH.SGPN.GN ---
Behaviors/Verbalizations/Mental Status: []Client alert and oriented, casually dressed and groomed. Eye contact good. Motor activity appropriate. Speech within normal limits. Affect congruent, mood euthymic and stressed. Thoughts linear, logical, no signs of hallucinations or delusions. Client Response/Progress/Benefit: []Pt responded well to session AEB sharing and listening attentively to others. Pt reports following up with therapy and pt reports she is taking her medications consistently. Pt stated using sitting with discomfort, asking for help, deep breathing, self-care, and opposite action as primary coping skills used this past week. Pt participated in group discussion defining vulnerability, how and why we avoid it, and the benefits. Pt was an active participant and provided personal examples of being vulnerable and the positive things that came with this. Pt stated that pt would like to work on being vulnerable this week by talking to people she hasn?t in some time. Will continue aftercare treatment to reinforce healthy coping skills and promote gains. Narrative Note: []
== END 2025-06-23 23:59 ==
LOC: BHOG 13:00
PROVIDERS: Referring Provider Student in an Organized Health Care Education/Training Program; Visit Provider Student in an Organized Health Care Education/Training Program
DX: F42.9 Obsessive-compulsive disorder, unspecified (principal); F43.10 Post-traumatic stress disorder, unspecified
CPT/HCPCS: 90853

== ENCOUNTER 2025-06-24 08:02 | Outpatient (RCR) | payer MEDICAID, SELFPAY ==
--- NOTE | 2025-07-02 14:00 | BH.SGPN.GN ---
Behaviors/Verbalizations/Mental Status: []Pt alert and oriented, neatly dressed and groomed. Eye contact good. Motor activity appropriate. Speech within normal limits. Affect congruent, mood euthymic and agitated. Thoughts linear, logical, no signs of hallucinations or delusions. Client Response/Progress/Benefit: [] Pt took notes and contributed to group discussions. Pt reports she has been taking medications consistently and pt has been seeing her therapist. Pt identified coping skills she has been using which included: reframing, deep breathing, socializing, and giving herself credit. Pt engaged in discussion on habits and how they are formed. Pt gave examples of how to build healthy habits and reported benefitting from habit stacking. Pt shared she wants to work on building the habit of journaling her mental health wins. Pt appeared to benefit from learning about building healthy habits and setting a habit goal. Will continue IOP tx to promote mood stability and use of healthy coping skills. Narrative Note: []
--- NOTE | 2025-07-02 16:14 | BH.TPR ---
Treatment Plan Review Demographics Date of Admission:: 06/04/25 Date of Treatment Plan Review:: 07/02/25 Admitting Diagnoses:: OCD F 42; PTSD Current Diagnoses:: OCD F 42; PTSD Patient Status Patient's Response to Treatment:: Pt responding well to treatment AEB pt's consistent attendance, active engagement in group discussions, follow up with outpatient providers, and reporting use of skills outside treatment environment. Pt utilizes IOP aftercare to process current stressors, gain social support, and maintain gains. Status of Current Problems and Symptoms: Pt's symptoms are resolving and overall pt is coping well. However, pt continues to report flare ups of OCD, depression, and anxiety. Pt also has ongoing stress with work, friendships, and her health. Progress Problem #1: Problem Name:: Pt will maintain or decrease symptoms from IOP admission data. Status of Goals:: Obj 1 - complete with ongoing work encouraged as pt's overall DSM-5 scores are 48% less than pt's IOP admission. Pt's scores for depression is still 50% less than at admission and OCD symptoms are 86% less than at admission to IOP. Obj 2- complete with ongoing work encouraged. Pt reports using opposite action, ERP, mindfulness, and thought challenging. Team Recommendations:: Recommended pt continue IOP aftercare group to show maintenance of progress. Will continue to encourage pt to attend regular outpatient counseling and psychiatry appointments as well.
== END 2025-07-24 23:59 ==
LOC: BHOG 08:02
PROVIDERS: Referring Provider Student in an Organized Health Care Education/Training Program; Visit Provider Student in an Organized Health Care Education/Training Program
DX: F42.9 Obsessive-compulsive disorder, unspecified (principal); F43.10 Post-traumatic stress disorder, unspecified
CPT/HCPCS: 90853

== ENCOUNTER 2025-07-27 08:37 | Outpatient (RCR) | payer MEDICAID, SELFPAY ==
--- NOTE | 2025-07-30 14:00 | BH.SGPN.GN ---
Behaviors/Verbalizations/Mental Status: []Pt alert and oriented, neatly dressed and groomed. Eye contact good. Motor activity appropriate. Speech within normal limits. Affect congruent, mood grateful. Thoughts linear, logical, no signs of hallucinations or delusions. Client Response/Progress/Benefit: [] Pt took notes and contributed to group discussions. Pt reports following up with their outpatient providers and taking medication. Pt identified coping skills pt has been using which included: goal setting, finding the akhtar, PMR, asking for help, and setting boundaries. Pt engaged in discussion self-love, what it is, and how it is formed. Pt worked with peers during the experiential activity and connected it back to acceptance and self-love. Pt shared they can work on doing more things that highlight her strengths. Pt appeared to benefit from learning about self-love strategies and how to accept all parts of themselves. Will discharge from [facility] tx today as pt has accomplished her aftercare goals. Narrative Note: []
--- NOTE | 2025-07-30 15:47 | BH.DS_ITS ---
Discharge Summary Demographics Date of Admission:: 06/04/25 Discharge Date: 07/30/25 Presenting Problems at Admission:: Pt admitted to [facility] level of care due to OCD, depression, and overall PTSD symptoms hindering pt's ability to function at her baseline. Pt was admitted to [facility] aftercare to maintain gains made in IOP tx, further reduce symptoms, and improve distress tolerance. Discharge Diagnoses:: OCD F 42; PTSD Reason for Discharge:: Pt has accomplished tx goals AEB ability to maintain mood stability and gains made in IOP. Treatment Progress During Treatment & Response: Pt responded well to treatment AEB pt's consistent attendance, ongoing attentiveness and engagement in group discussions, and continued reporting use of skills outside treatment environment. Pt's symptoms are 64% lower than they were at IOP admission per the DSM-5. Pt's anxiety is 42% lower, depression is 50%, OCD is 100%, and anger is 100% lower than at IOP admission. Pt has been able to maintain consistent progress for an additional 8 weeks following IOP tx. Issues Still to be Addressed:: Managing gains and continuing ERP to manage OCD, increasing self-confidence, setting boundaries, PTSD, and increasing support. Discharge Recommendations/Instructions:: Pt will follow up with Dr. Thurman for medication management through [facility]. Pt will follow up with Perla at [facility] for individual therapy. Discharge Handout
== END 2025-07-31 07:48 | disposition home or self-care (01) ==
LOC: BHOG 08:37
PROVIDERS: Referring Provider Student in an Organized Health Care Education/Training Program; Visit Provider Student in an Organized Health Care Education/Training Program
DX: F42.9 Obsessive-compulsive disorder, unspecified (principal); F43.10 Post-traumatic stress disorder, unspecified
CPT/HCPCS: 90853